=== PATIENT | male | born 2000 | race Caucasian/White ===

== ENCOUNTER 2024-08-26 03:10 | Emergency (ER) | payer BC, SELFPAY ==
[2024-08-26 03:13] VITALS: BP 114/68; PULSE 84; RESP 18; TEMP 37; O2SAT 98; BMI 23.4
--- NOTE | 2024-08-26 03:28 | ED_ITS ---
HPI - Pediatric HENT General Chief complaint: Ear Problems Stated complaint: possible strep Time Seen by Provider: 08/26/24 03:22 Source: patient Mode of arrival: ambulatory Limitations: no limitations History of Present Illness ED Provider: Dr. Gini Yanez HPI Narrative: Patient comes to the emergency room complaining of throat pain and left-sided ear pain. Patient states he woke up with pain approximately 2 hours ago. She denies any trauma. Related Data Previous Rx's ?Medication ?Instructions ?Recorded amoxicillin 500 mg-potassium 1 tab PO TID 10 days #30 tabs 08/26/24 clavulanate 125 mg tablet (Augmentin) ibuprofen 600 mg tablet 600 mg PO Q8H PRN fever or pain 08/26/24 #20 tabs Allergies Allergy/AdvReac Type Severity Reaction Status Date / Time prednisone Allergy Unknown Unknown Unverified 08/26/24 03:16 No Known Allergies Allergy Unverified 08/26/24 03:16 [No Known Allergies*] Pediatric Review of Systems Review of Systems: Constitutional : No Weight loss, No Fever, No Chills, No Night Sweats, No Fatigue, No Malaise ENT/Mouth : No Hearing loss, complaining of left-sided Ear Pain, No Nasal Congestion, No Sinus Pain, No Hoarseness, complaining of sore throat, No Rhinorrhea, No Swallowing Difficulty Eyes: No Eye Pain, No Swelling, No Redness, No Foreign Body, No Discharge, No Vision Changes Cardiovascular : No Chest Pain, No SOB, No Dyspnea on Exertion, No Orthopnea, No Edema, No Palpitations Respiratory : No Cough, No Sputum, No Wheezing, No Smoke Exposure, No Dyspnea Gastrointestinal : No Nausea, No Vomiting, No Diarrhea, No Constipation, No abdominal Pain, No Hematochezia, No Melena Genitourinary : no irregular bleeding, No Dysuria, No Urinary Frequency, No Hematuria, No Urinary Incontinence, No Urgency, No Flank Pain, No Urinary Flow Changes, No Hesitancy Musculoskeletal : No joint pain, No Myalgias, No Joint Swelling Skin : No Skin Lesions, No rash Neuro : No Weakness, No Numbness, No Paresthesias, No Loss of Consciousness, No Dizziness, No Headache Psych : No Anxiety/Panic, No Depression, No SI/HI/AH/VH, No Social Issues, Heme/Lymph: No Bruising, No Bleeding,No Lymphadenopathy Endocrine : No Polyuria, No Polydipsia, No Temperature Intolerance PMFSH Social History Social History Smoked in Last 30 Days: No Use of substances other than those prescribed or required for medical reasons: No Advance Directives: No Advance Directives Information Provided: Yes Pediatric Exam Narrative: Physical exam: Appearance: Alert. Oriented X3. No acute distress. Eyes: Pupils equal, round and reactive to light. ENT: Pharynx erythematous, white exudates bilaterally present, no obvious abscesses. Right ear canal and tympanic membrane within normal limits, the ear canal and tympanic membrane erythematous, no ruptured membranes bilaterally, no mastoid bone tenderness bilaterally Neck: Normal inspection. Neck supple. No lymph nodes noted. No crepitus CVS: Normal heart rate and rhythm. Pulses normal. Normal S1 and S2 Respiratory: No respiratory distress. Breath sounds normal. No Wheezing. No rales Abdomen: Soft and nontender. No rigidity. No distention. Skin: Skin warm and dry. Normal skin color. Normal skin turgor. Extremities: No lower extremity edema. No Lacerations. No Rash Neuro: Oriented X 3. No motor deficit. No sensory deficit. Moving all extremities. No slurred speech. CN 2 through 12 grossly intact Psych: calm, cooperative, normal affect General: Limitations: no limitations Medications Administered Discontinued Medications Generic Name Dose Route Start Last Admin Trade Name Freq PRN Reason Stop Dose Admin Amoxicillin/Clavulanate Potassium 500 mg 08/26/24 03:27 08/26/24 03:32 Amoxicillin/Potassium Clav 500 Mg Tablet PO 08/26/24 03:28 500 mg ONCE ONE Administration Ibuprofen 600 mg 08/26/24 03:29 08/26/24 03:32 Ibuprofen 600 Mg Tablet PO 08/26/24 03:30 600 mg ONCE ONE Administration Medical Decision Making Medical Decision Making [facility] Narrative: Patient has otitis media. Patient given the 1st dose of Augmentin and ibuprofen in the ED. -I discussed with the patient that the antibiotic for the otitis will also cover strep. However, patient requesting to be tested because family members at home have similar symptoms and would like to know if he has strep Strep test was negative. Discussed with the patient that they initial test may be negative by the cultures may be positive. Patient is already taking antibiotics which would cover for strep. Differential Diagnosis Differential Diagnoses: The differential diagnosis associated with the presentation includes (Strep pharyngitis, viral pharyngitis, viral syndrome) Lab Data [facility] Lab Attestation statement: I reviewed the patient's lab results. Labs: Lab Results 08/26/24 Range/Units 03:19 S. pyogenes GrpA AKI Negative (Negative) Discharge Plan Discharge Clinical Impression: Otitis media Patient Disposition: Home, Self-Care Instructions: Ear Infection (ED) Additional Instructions: Please follow-up with your primary care physician tomorrow. If you have any worsening or new symptoms, please return to the emergency room or call 911 Prescriptions: New amoxicillin-pot clavulanate [Augmentin] 500-125 mg tablet 1 tab PO TID 10 Days Qty: 30 0RF ibuprofen 600 mg tablet 600 mg PO Q8H PRN (Reason: fever or pain) Qty: 20 0RF Print Language: Swedish
[2024-08-26] MEDS: Amoxicillin/Potassium Clav 500 MG TABLET PO (03:32)
[2024-08-26] MEDS: Ibuprofen 600 MG TABLET PO (03:32)
[2024-08-26 03:41] LABS: IDNOW Serial# 08D9AD1C; Strep A Nucleic Acid Negative (Negative)
[2024-08-26 04:02] VITALS: BP 141/91; PULSE 85; RESP 16; TEMP 36.9; O2SAT 98
--- NOTE | 2024-08-26 04:03 | PC.NURSE ---
Medicated per Mar, reviewed discharge instructions with pt, pt verbalized understanding no sign of distress upon discharge.
[2024-08-26 04:05] VITALS: BP 141/91; PULSE 85; RESP 16; TEMP 36.9; O2SAT 98
== END 2024-08-26 04:05 | disposition home or self-care (01) ==
PROVIDERS: Emergency Provider Emergency Medicine; PCP Family Medicine
DX: H66.92 Otitis media, unspecified, left ear (principal); J02.9 Acute pharyngitis, unspecified
CPT/HCPCS: 87651; 99283; 99284

== ENCOUNTER 2024-10-22 13:20 | Emergency (ER) | payer BC, SELFPAY ==
--- NOTE | ~2024-10-22 | XR_ITS ---
EXAMINATION: XR CHEST CLINICAL INFORMATION: CP COMPARISON: None available. TECHNIQUE: 2 views of the chest were obtained. FINDINGS: No significant abnormality is noted involving the heart, lungs, mediastinum, bony thorax or soft tissues. XR/XR chest 2V IMPRESSION: Unremarkable chest examination. Electronically signed by: Alek Hayes MD 10/22/2024 01:[address] [facility]
[2024-10-22 13:22] VITALS: BP 155/98; PULSE 78; RESP 20; TEMP 36.3; O2SAT 100; BMI 22.5
--- NOTE | 2024-10-22 13:22 | ED_ITS ---
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 Pain over left upper lateral chest wall described as a tight, burning pressure. Discomfort radiates to the left axilla at times. Denies diaphoresis, shortness of breath, nausea vomiting. Patient denies recent cough or cold symptoms no fevers. Patient denies mechanism of injury to suggest chest wall strain. Patient states he is currently being followed by gastroenterology for ongoing epigastric discomfort; he is pending a scope. Related Data Previous Rx's ?Medication ?Instructions ?Recorded amoxicillin 500 mg-potassium 1 tab PO TID 10 days #30 tabs 08/26/24 clavulanate 125 mg tablet (Augmentin) ibuprofen 600 mg tablet 600 mg PO Q8H PRN fever or pain 08/26/24 #20 tabs Allergies Allergy/AdvReac Type Severity Reaction Status Date / Time prednisone Allergy Unknown Unknown Verified 10/22/24 13:24 Review of Systems 2 Review of Systems: Yes all other systems are reviewed and are negative Constitutional: Constitutional: Denies fatigue and Denies fever(s) Cardiovascular: Cardiovascular: Reports chest pain and Denies dyspnea Respiratory: Respiratory: Denies chest congestion, Denies cough, Denies dyspnea and Denies wheezing Gastrointestinal: Gastrointestinal: Reports abdominal pain, Denies dyspepsia, Denies nausea and Denies vomiting Endocrine: Endocrine: Denies fatigue Allergic/Immunologic: Allergic/Immunologic: Denies wheezing [facility] Past Medical History Attestation statement: The following information was validated with the patient. Social History Social History Advance Directives: No Advance Directives Information Provided: Yes Do you have a plan to hurt others: No Plan Physical Exam 2 Vital Signs: Vital Signs: Last Vital Signs Temp 97.9 F 10/22/24 17:57 Pulse 93 10/22/24 17:57 Resp 20 10/22/24 17:57 BP 143/91 H 10/22/24 17:57 Pulse Ox 98 10/22/24 17:57 O2 Del Method Room Air 10/22/24 17:57 BMI result Body Mass Index 22.5 Const: Other: Alert well-appearing Orientation/consciousness: patient oriented x3 Resp: Effort & Inspection: normal respiratory effort Cardio: Other: Normal peripheral perfusion Skin: Other: Warm dry no rash Neuro: General: patient oriented x3, gait normal, no focal motor deficits and CN's II-XI intact bilaterally Psych: Other: Calm cooperative Course Course Course Narrative: This is an RME: Additional HPI, ROS, PE not included below will be deferred to primary provider. RME assessment and note performed by: Debi Lowe PA-C This is a 27-pneb-gbf-male, with a hx of dialated vena cava, who presents to the ER with complaints of left sided burning chest pain x 1 week. Reports pain has woken him up in the middle of the night. 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 He is awaiting a 2nd echocardiogram through [facility]. His father has a history of an aortic aneurysm as well as atrial fibrillation. Was here 1 month ago for ear infection. Plan: Labs, EKG, chest x-ray, further ER evaluation needed. 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 Pain over left upper lateral chest wall described as a tight, burning pressure. Discomfort radiates to the left axilla at times. Denies diaphoresis, shortness of breath, nausea vomiting. Patient denies recent cough or cold symptoms no fevers. Patient denies mechanism of injury to suggest chest wall strain. Patient states he is currently being followed by gastroenterology for ongoing epigastric discomfort; he is pending a scope. Problem: Congenital heart issues, anxiety History: Per patient I have considered the following differential diagnoses: ACS, new heart failure, costochondritis, chest wall strain, PE, poorly controlled GERD Plan: ACS was considered, screening labs including a cardiac enzymes EKG and chest x-ray were obtained. When patient arrived he was tachycardic. I am considering dimer. To note, he has no objective signs symptoms for DVT on exam. This is not new failure, he is not overtly hypertensive, he is not hypoxic, he has no shortness of breath. This is not costochondritis, he has not had preceding viral syndrome. This is not chest wall strain, he has no mechanism of injury. I do feel his anxiety is playing a role, he freely admits he often perseverates over chest related discomfort secondary to his congenital heart issues. In regard to his ongoing epigastric discomfort, he likely has poorly controlled GERD, however the distribution of his chest discomfort does not coincide with indigestion. I have independently reviewed the following tests: Labs: Slight leukocytosis, not anemic, no electrolyte abnormality, troponin negative, dimer negative EKG: Sinus tachycardia rate of 125, no ischemic changes no ectopy Chest x-ray:INDINGS: No significant abnormality is noted involving the heart, lungs, mediastinum, bony thorax or soft tissues. XR/XR chest 2V IMPRESSION: Unremarkable chest examination. Electronically signed by: Alek Hayes MD 10/22/2024 01:59 PM [facility] Lab Data 10/22/24 14:01 10/22/24 14:01 Labs: Lab Results 10/22/24 10/22/24 Range/Units 14:01 19:09 WBC 11.8 H (4.8-10.8) X10*3/uL RBC 5.08 (4.60-5.80) X10*6/uL Hgb 16.1 (14.0-18.0) g/dl Hct 45.9 (42.0-52.0) % MCV 90.4 (80.0-98.0) fL MCH 31.7 (27.0-33.0) pg MCHC 35.1 (31.0-36.0) g/dl RDW 12.9 (11.0-16.0) % Plt Count 417 H (160-400) X10*3/uL MPV 8.7 L (9.4-12.4) fL Immature Gran % (Auto) 0.3 (0.0-0.4) % Neut % (Auto) 68.0 (45-73) % Lymph % (Auto) 21.4 (20-40) % [place] % (Auto) 8.7 (2-11) % Eos % (Auto) 0.9 (0-4) % Baso % (Auto) 0.7 (0-2) % Lymph # (Auto) 2.5 (1.2-4.9) X10*3/uL [place] # (Auto) 1.0 (0.1-1.2) X10*3/uL Eos # (Auto) 0.1 (0.0-0.4) X10*3/uL Baso # (Auto) 0.1 (0.0-0.2) X10*3/uL Abs Immat Gran (auto) 0.04 H (0.00-0.03) X10*3/uL Absolute Neuts (auto) 8.0 (2.0-8.3) x10*3/uL Absolute Nucleated RBC 0.000 (0.0-0.012) X10*3/uL Nucleated RBC % (auto) 0.0 (0.0-0.2) /100WBC PT 11.3 (10.9-12.4) SEC INR 1.0 (0.9-1.1) D-Dimer High Sensitivty < 150 < 150 NG/ML Sodium 139 (135-145) mmol/L Potassium 3.5 (3.3-5.1) mmol/L Chloride 101 (96-108) mmol/L Carbon Dioxide 29 (22-29) mmol/L Anion Gap 13 (12-20) BUN 10 (9-16) mg/dL Creatinine 0.85 (0.5-1.4) mg/dL Estim Creat Clear Calc 156.3 Estimated GFR > 60 Random Glucose 124 H (60-115) mg/dL Calcium 9.7 (8.4-10.2) mg/dL Magnesium 2.0 (1.6-2.6) mg/dL Total Bilirubin 0.6 (0.0-1.0) mg/dL Direct Bilirubin 0.2 (0.0-0.5) mg/dL AST 24 (5-37) U/L ALT 28 (0-40) U/L Alkaline Phosphatase 44 (39-117) U/L Troponin I High Sens < 2.7 (<3.5-35.0) ng/L B-Natriuretic Peptide < 10 (<100) pg/mL Total Protein 8.2 H (6.5-8.0) g/dL Albumin 4.9 (3.5-5.0) g/dL Influenza Type A (PCR) NEGATIVE (Negative) Influenza Type B (PCR) NEGATIVE (Negative) RSV RNA Qual (PCR) NEGATIVE (Negative) SARS-CoV-2 RNA (RT-PCR) NEGATIVE (Negative) Discharge Plan Discharge Clinical Impression: Atypical chest pain Patient Disposition: Home, Self-Care Instructions: Noncardiac Chest Pain (ED) Additional Instructions: All of your screening labs including a cardiac enzymes were normal. The D- dimer, the lab parameter that we spoke about in regard to clot metabolism, was negative as well. The chest x-ray is clear and there were no concerning changes on your EKG. Your discomfort today is not cardiac in nature. Continue to follow up with your healthcare providers. Prescriptions: No Action amoxicillin-pot clavulanate [Augmentin] 500-125 mg tablet 1 tab PO TID 10 Days Qty: 30 0RF ibuprofen 600 mg tablet 600 mg PO Q8H PRN (Reason: fever or pain) Qty: 20 0RF Print Language: Gibraltarian
--- NOTE | 2024-10-22 13:25 | ECG_ITS ---
Test Reason : chest pain Blood Pressure : */* mmHG Vent. Rate : 125 BPM Atrial Rate : 125 BPM P-R Int : 130 ms QRS Dur : 82 ms QT Int : 340 ms P-R-T Axes : 84 84 76 degrees QTcB Int : 490 ms Sinus tachycardia Right atrial enlargement Borderline ECG No previous ECGs available Referred By: Debi Lowe Electronically Signed By: CHRISS BRITTON
[2024-10-22 14:05] LABS: MANUAL DIFF FLAG NO
[2024-10-22 14:07] LABS: Basophils Absolute Auto 0.1 X10*3/uL (0.0-0.2); Basophils Percent Auto 0.7 % (0-2); Eosinophils Absolute Auto 0.1 X10*3/uL (0.0-0.4); Eosinophils Percent Auto 0.9 % (0-4); Hematocrit 45.9 % (42.0-52.0); Hemoglobin 16.1 g/dl (14.0-18.0); Imm Gran Abs Auto 0.04 X10*3/uL (0.00-0.03); Imm Gran Pct Auto 0.3 % (0.0-0.4); Lymphocytes Absolute Auto 2.5 X10*3/uL (1.2-4.9); Lymphocytes Percent Auto 21.4 % (20-40); Mean Corpuscular HGB Conc 35.1 g/dl (31.0-36.0); Mean Corpuscular Hemoglobin 31.7 pg (27.0-33.0); Mean Corpuscular Volume 90.4 fL (80.0-98.0); Mean Platelet Volume 8.7 fL (9.4-12.4); Monocytes Percent Auto 8.7 % (2-11); Platelet Count 417 X10*3/uL (160-400); Red Blood Count 5.08 X10*6/uL (4.60-5.80); Red Cell Distribution Width 12.9 % (11.0-16.0); White Blood Count 11.8 X10*3/uL (4.8-10.8)
[2024-10-22 14:13] LABS: Prothrombin Time 11.3 SEC (10.9-12.4)
[2024-10-22 14:24] LABS: Alanine Aminotransferase 28 U/L (0-40); Albumin Level 4.9 g/dL (3.5-5.0); Alkaline Phosphatase 44 U/L (39-117); Anion Gap 13 (12-20); Aspartate Amino Transferase 24 U/L (5-37); Bilirubin Direct 0.2 mg/dL (0.0-0.5); Bilirubin Total 0.6 mg/dL (0.0-1.0); Blood Urea Nitrogen 10 mg/dL (9-16); Calcium 9.7 mg/dL (8.4-10.2); Carbon Dioxide 29 mmol/L (22-29); Chloride 101 mmol/L (96-108); Creatinine Clr Calc Pharmacy 156.3; Estimated Glomerular Filt Rate > 60; Glucose Random 124 mg/dL (60-115); Potassium 3.5 mmol/L (3.3-5.1); Sodium 139 mmol/L (135-145); Total Protein 8.2 g/dL (6.5-8.0)
[2024-10-22 14:28] LABS: B Type Natriuretic Peptide < 10 pg/mL (<100)
[2024-10-22 14:30] LABS: Troponin-I High Sensitivity < 2.7 ng/L (<3.5-35.0)
--- OUTSIDE RECORDS SUMMARY | 2024-10-22 14:35 | XMS_ITS | Encounter Summary ---
Author Organization [facility] Address [address] [place] [id number] Phone Care Team Providers Care Ceramic Artist Name Role Phone Jose M Hatch MD Primary Care Provider [phone] Encounter Details Date Type Department Care Team (Late st Contact Info) Description 11/21/2011 Documentation EM Family Medicine [address] [place] [address] Family Medicine, Physician [address] [place], [place] [id number] Social History Tobacco Use Types Packs/Day Years Used Date Smoking Tobacco: Never Assessed Sex and Gender Information Value Date Recorded Sex Assigned at Not on file Legal Sex Male 5:22 PM EDT Gender Identity Not on file Sexual Orientation Not on file documented as of this encounter Plan of Treatment Not on file documented as of this encounter Visit Diagnoses Not on filedocumented in this encounter Care Teams Ceramic Artist Relationship Specialty Start Date End Date Jose M Hatch MD [address] [place] [address] [place] [id number] PCP - General 05/05/17 11/10/22 documented as of this encounter
--- OUTSIDE RECORDS SUMMARY | 2024-10-22 14:35 | XMS_ITS | Data Portability ---
Author Organization ALEJANDRO Salvador [facility], [address] Address [address] [place] [address] Assessment No assessment recorded. Plan of Treatment Reminders Order Date Submit Date Provider Last Modified By Organization Details Last Modified Time Details Appointments None recorded. Lab rapid strep group A, throat 2023 024 [email or web address] _[facility], [address] [place] [address], [phone], 11:07:40 streptococc us group A, culture, throat 2023 024 [place] [facility] ([facility], [address] [place] [address], [place], [address], 08:07:11 Referral None recorded. Procedures None recorded. Surgeries None recorded. Imaging None recorded. Medication Orders None recorded. Patient TargetsNo targets recorded. Patient Instructions Encounter Date Encounter Id Patient Instructions Last Modified By Organization Details Last Modified Time 09/14/2024 [id number] sore throat: car e instructions [email or web address] Not available 09/14/2024 11:07:40 Reason for Referral None Reported. Results Created Date Observation Date Name Description Value Unit Range Abnormal Flag Note LastModifiedBy Organization Detail LastModifiedTime 09/14/2009/17/2024 BETA STREP GP A CULTU RE beta strep gp A culture NEGATI VE Refer ence Range : Negat che Not Available [facility] ([facility]) [address] [facility], [place], [address], 09/17/2024 08:07:10 09/14/2009/14/2024 rapid strep group A, throa t Unknown Analyte negati ve Not Available [address] [place] [address], [phone], 09/14/2024 10:56:58 Result Notes None recorded. Problems No Known Problems Medical Equipment None Reported. Allergies Allergen ID Allergen Name Allergen Category Reaction Reaction Severity Criticality Documentation Date Start Date Code Code System Note Provider Name and Address Organization Details Recorded Time [id number] prednison e medicatio n Not available Not available Not available 09/14/2024 8640 RxNorm Fany Perri null, PA - [facility] 10:56:10 Medications Name Sig Start Date Stop Date Status Note LastModified by Organization Details LastModified Time ibuprofen 600 mg tablet active Not Available Not Available No t Available amoxicillin 500 mg-potassium clavulanate 125 mg tablet 2023 completed Not Available Not Available Not Available Vitals Date Recorded Body height Provider Name an d Address Organization Details Last Updated DateTime 09/14/2024 193.04 cm Fany Perri PA - [facility] 09/14/2024 10:57:05 Date Recorded Body mass index (BMI) Body weight Provider Name and Address Organization Details Last Updated DateTime 09/14/2024 23.7 kg/m2 52710.51 g Fany Perri PA - [facility] 09/14/2024 10:57:08 Date Recorded Oxygen saturation Oxygen saturation in Arterial blood by Pulse oximetry Provider Name and Address Organization Details Last Updated DateTime 09/14/2024 99 % 99 % Fany Perri PA - [facility] 09/14/2024 10:57:39 Date Recorded Pain severity - 0-10 verbal numeric rating [Score] - Reported Provider Name and Address Organization Details Last Updated DateTime 09/14/2024 0 Fany Perri PA - [facility] 09/14/2024 10:57:41 Date Recorded Heart rate Provider Name an d Address Organization Details Last Updated DateTime 09/14/2024 89 /min Fany Perri PA - [facility] 09/14/2024 10:57:43 Date Recorded Respiratory rate Provider Name a nd Address Organization Details Last Updated DateTime 09/14/2024 18 /min Fany Rayo PA - [facility] 09/14/2024 10:57:45 Date Recorded Body temperature Provider Name a nd Address Organization Details Last Updated DateTime 09/14/2024 97.7 [degF] Fany Rayo PA - [facility] 09/14/2024 10:57:49 Date Recorded Systolic blood pressure Diastolic blood pressure Provider Name and Address Organization Details Last Updated DateTime 09/14/2024 138 mm[Hg] 84 mm[Hg] Fany Rayo PA - [facility] 09/14/2024 10:57:54 Social History Question Answer Notes LastModified by Organizat ion Details LastModified Time Tobacco Smoking Status Never Smoker Fany Rayo amarilis PA - [facility] 09/14/2024 10:56:45 What Is Your Level Of Alcohol Consumption? Occasional Information not available 09/14/2024 Have You Had A Flu Shot This Season? No Information not available 09/14/2024 If No, Would You Like A Flu Shot Today? No Information not available 09/14/2024 What Was The Date Of Your Most Recent Tobacco Screening? 09/14/2024 Information not available 09/14/2024 Do You Use Any Illicit Or Recreational Drugs? Yes Information not available 09/14/2024 Have You Recently Traveled Abroad? No Information not available 09/14/2024 Do You Or Have You Ever Used Any Other Forms Of Tobacco Or Nicotine? No Information not available 09/14/2024 Sex: Unknown Functional Status None recorded. Mental Status None recorded. Family History Relationship Description Onset Age of this Age Resolved Age Notes LastModified by Organization Details LastModified Time Father No current problems or disability Not available 09/14 10:56:32 Mother No current problems or disability Not available 09/14 10:56:32 Medical History No medical history recorded. Past Encounters Encounter ID Performer Location Encounter Start Date Encounter Closed Date Diagnosis/Indication Diagnosis SNOMED-CT Code Diagnosis ICD10 Code Diagnosis Note [id number] [address] [place] [address] 08/04/2018 09:46:46 08/04/2018 10:56:29 [id number] [address] [facility] [place] [address] 11/01/2019 19:27:02 11/01/2019 19:51:44 [id number] [address] [facility] [place] [address] 05/18/2019 16:31:26 05/18/2019 16:48:11 [id number] [facility]DR[facility] [address] [address] [place] [address] 09/14/2024 10:51:42 09/14/2024 11:08:29 Acute pharyngitis 498000041 J02.9 Based on your Presentati on, Exam, and Lab Testing you are being diagnosed with Pharyngiti s. Your Rapid Strep Test was Negative. Most likely your sore throat is being caused by a virus, post nasal drip, or silent acid reflux. I am going to send a Throat Culture to the lab for you to make sure you don't have a different form of strep in your throat. This will take about 72 hours for that result to return. We will contact you if it positive - if for some reason you don't get a copy of your results or hear from us - please contact our office. The following are my other recommenda tions to help with symptoms and is important for this diagnosis: 1. Take Ibuprofen or Tylenol if you do not have any allergies to these medication s. If you take a blood thinner you should not take NSAIDS like Ibuprofen. These medication will help with the inflammati on in your respirator y tract which should help the cough. (I would alternate between Tylenol 650 mg and your Ibuprofen 600 mg every 4 hours)2. Steroid nasal sprays like Flonase or Nasonex (or generic) can help with postnasal drainage2. Do not take any Cold Medication s that have a Decongesta nt in it - this will dry out your throat and make the sore throat worse.3. Drinking Hot Tea with honey can help coat and soothe your throat. I would be seen again if you develop any of the following symptoms.1 . Fever > 101.02. Stiff neck - where you can't turn your neck3. Trouble swallowing your saliva - drooling4. Swelling of a lymph node in your throat that is painful to touch5. Difficulty breathing6 . Severe Headache Thank you for using [facility] today, please feel free to contact our office if you have any questions or concerns. Health Concerns Section Related Observation LastModified by Organization Detai ls LastModified Time None Recorded Concern Status LastModified by Organization Details LastModified Time None Recorded Advance Directives Directive None Recorded Payers Encounter Date Sequence Insurance Name Policy Number Policy Krause Covered Member ID Krause Member ID Guarantor Name 08/04/2018 1 [place] [id number] Man Abdullahi [id number] Tomas Ibarraacki 05/18/2019 1 [place] [id number] Man Barbacki [id number] Tomas Barbacki 11/01/2019 1 [place] [id number] Man Barbacki [id number] Tomas Barbacki 09/14/2024 1 [place] [id number] Man Barbacki [id number] Tomas Renei Notes Date Note Type Note Provider Name and Address Organization Details Recorded Time 09/14/2024 text/html 24 y/o male with sore throat for 2 days. Had sore throat 3 weeks ago, treated for strep based on exam, neg rapid, no cx.Symptoms improved a little, then restarted. He was also treated for an ear infection at the time [place], [address], PA - [facility] 09/14/2024 11:10:50
--- OUTSIDE RECORDS SUMMARY | 2024-10-22 14:35 | XMS_ITS | Continuity of Care Document ---
Author Organization [facility] Address [address] [place] [address]- Care Team Providers Care Milking Machine Mechanic Name Role Phone Ramon Negrete DO Primary Care Physician Encounter [facility] Date(s): 09/04/24 - 10/04/24 [facility] [place] Adult [address] [place] [address]- Encounter Type: Triage Allergies, Adverse Reactions, Alerts Substance Criticality Severity Reaction Reaction Severity Status predniSONE mood swings Active Immunizations Given and Recorded Vaccine Date Status Refusal Reason tetanus/diphtheria/pertussis, acel(Tdap) 01/17/23 Recorded tetanus/diphtheria/pertussis, acel(Tdap) 08/13/10 Recorded SARS-CoV-2 (COVID-19) mRNA-1273 vaccine 08/16/21 R ecorded SARS-CoV-2 (COVID-19) mRNA BNT-162b2 vac 12/01/20 Recorded SARS-CoV-2 (COVID-19) mRNA BNT-162b2 vac 11/09/20 Recorded influenza virus vaccine, inactivated 07/02/20 Give n influenza virus vaccine, inactivated 07/20/15 Kayode rded influenza virus vaccine, inactivated 07/18/14 Kayode rded Hepatitis A Vaccine (oldterm) 07/20/15 Recorded Hepatitis A Vaccine (oldterm) 12/23/14 Recorded Meningococcal Conjugate Vaccine 08/13/10 Recorded Varicella Virus Vaccine 07/02/08 Recorded Varicella Virus Vaccine 06/23/99 Recorded Measles/Mumps/Rubella Virus Vaccine 06/26/02 Recor ded Measles/Mumps/Rubella Virus Vaccine 06/23/99 Recor ded Poliovirus Vaccine, Inactivated 06/26/02 Recorded Poliovirus Vaccine, Inactivated 06/23/99 Recorded Poliovirus Vaccine, Inactivated 98 Recorded Poliovirus Vaccine, Inactivated 98 Recorded Haemophilus B Conj Vaccine (oldterm) 09/15/99 Kayode rded Haemophilus B Conj Vaccine (oldterm) 98 Kayode rded Haemophilus B Conj Vaccine (oldterm) 98 Kayode rded Haemophilus B Conj Vaccine (oldterm) 98 Kayode rded Hepatitis B Vaccine (old term) 98 Recorded Hepatitis B Vaccine (old term) 98 Recorded Hepatitis B Vaccine (old term) 98 Recorded Medications albuterol CFC free 90 mcg/inh inhalation aerosol 2, puffs, Inhalation, Every 6 hours, # 1 each, Refills 0, Tot. Refills 0, Maintenance, 01/10/19 3:11:08 PM EDT, Route to Pharmacy Electronically, [id number], [facility] [id number] Start Date: 01/10/19 Status: Ordered Quantity: 1.0 Unit: each Repeat number: 1 hyoscyamine 0.125 mg oral tablet, disintegrating 0.5 tablet = 0.0625 mg, By Mouth, 4 times a day, PRN as needed for spasm, # 60 tablet, 3 Refills, Maintenance, 08/26/24 4:46:00 PM EST, DIS Tablet, [id number], Partial fill upon patient request if the prescription is for a schedule II opioid drug., 196, cm, 08/26/24 16:18:00 EST, Height Start Date: 08/26/24 Status: Ordered Quantity: 60.0 Unit: tablet Repeat number: 4 sertraline 100 mg oral tablet 0.5 tablet = 50 mg, By Mouth, Daily, 0 Refills, Maintenance, 07/31/19 3:21:16 PM EST Start Date: 07/31/19 Status: Ordered Repeat number: 1 Problem List Condition Confirmation Course Effective Dates Status Health St atus Informant Acute left otitis media Confirmed Active Change in stool caliber Confirmed Active 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 Depression Confirmed Active Enlarged RV (right ventricle) Confirmed Active Family history of congenital heart defect Confirmed Active NU (generalized anxiety disorder) Confirmed Active Left sided abdominal pain Confirmed Active OCD (obsessive compulsive disorder) Confirmed Active Physical exam Confirmed Active Seasonal affective disorder Confirmed Active Seasonal asthma Confirmed Active Social History Social History Type Response Smoking Status Never (less than 100 in lifetime) entered on: 10/05/18 Sex Sex Representation Male (finding) Patient Care team information Care Team Personnel Name: Ramon Negrete DO Position: [facility] Physician - Primary Care Member Role: PCP Address: [address] [place] [address] [place] [address]- Telecom: Name: Edward Brennan MD Position: [facility] Physician - Behavioral Health Member Role: Lifetime Consulting Physician Address: [address] [place] [address]- Telecom: Care Team Related Persons Name: MARIIA GALLEGOS Name: ALMA GALLEGOS Insurance Providers Guarantor name: KE Health Plan Information #: 1 Payer: [employer] ELECT Member Number: NA Policy Number: NA Group Number: NA
--- OUTSIDE RECORDS SUMMARY | 2024-10-22 14:35 | XMS_ITS | Continuity of Care Document ---
Author Organization [facility] [address] Address [address] [place] [address]- Care Team Providers Care Payment Rep Name Role Phone Ramon Negrete DO Primary Care Physician Encounter [facility] Date(s): 09/04/24 - 10/04/24 [facility] Adult [address] [place] [address]- Encounter Type: Triage Allergies, Adverse Reactions, Alerts [...] 3:11:08 PM EDT, Route to Pharmacy Electronically, [id number], [facility] [id number] Start Date: 01/10/19 Status: Ordered Quantity: 1.0 Unit: each Repeat number: 1 hyoscyamine 0.125 mg oral tablet, disintegrating 0.5 tablet = 0.0625 mg, By Mouth, 4 times a day, PRN as needed for spasm, # 60 tablet, 3 Refills, Maintenance, 08/26/24 4:46:00 PM EST, DIS Tablet, [id number], Partial fill upon patient request if the [...] Team Personnel Name: Ramon Negrete DO Position: [facility] Physician - Primary Care Member Role: PCP Address: [address] [place] [address] [place] [address]- Telecom: Name: Edward Brennan MD Position: [facility] Physician - Behavioral Health Member Role: Lifetime Consulting Physician Address: [address] [place] [address]- Telecom: Care Team Related Persons Name: MARIIA GALLEGOS Name: ALMA GALLEGOS Insurance Providers Guarantor name: KE Health Plan Information #: 1 Payer: [employer] E[employer] Member Number: NA Policy Number: NA Group Number: NA
--- OUTSIDE RECORDS SUMMARY | 2024-10-22 14:35 | XMS_ITS | Clinical Summary ---
Author Organization [facility] Address [address] [place] [address] Phone Care Team Providers Care Mine Shifter Name Role Phone Unavailable Primary Care Provider Unavailabl e Allergies No known active allergies Medications No known medications Immunizations Name Administration Dates Next Due DTaP 5 06/26/2002, 0,1998, 999,1998 H1N1 07/29/2009 Hep A, ped/adol 07/20/2015,12/23/2014 Hep B, ped/adol 1998,1998,1998 Hib (PRP-T) 09/15/1999, 9,1998, 998 IPV 06/26/2002 Influenza Split 08/24/2011,06/30/2010 Influenza, injectable, quadrivalent 07/20/2015,1 Influenza, injectable, trivalent 06/05/2009,06/25 MMR 06/26/2002,06/23/1999 Meningococcal Conj (Menactra) MCV4P 08/13/2010 OPV 06/23/1999,1998,1998 Tdap 08/13/2010 Varicella 07/02/2008,06/23/1999 Family History Relation Name Status Comments Brother Alive Brother: Alive and well Father Alive Father: Alive a nd well Mother Alive Mother: Alive a nd well Other 1 Alive grandmother: Di abetes mellitus Other 2 No family histo ry of Obesity, No family history of Sudden /ND under age 55, No family history of Elevated cholesterol, No family history of Strabismus/amblyopia, No family history of ADD/ADHD, No family history of Migraines, No family history of Autism, Family history of Hypertension, No family history of Asthma, No family history of Developmental dislocation of hip, No family history of Deafness, No family history of Seizure disorder Social History Tobacco Use Types Packs/Day Years Used Date Smoking Tobacco: Never Comments:Never smoker Sex and Gender Information Value Date Recorded Sex Assigned at Not on file Legal Sex Male 5:22 PM EDT Gender Identity Not on file Sexual Orientation Not on file Last Filed Vital Signs Vital Sign Reading Time Taken Comments Blood Pressure 126/74 08/01/2017 11:11 AM EST Pulse 61 08/01/2017 11:11 AM EST Temperature 37 ??C (98.6 ??F) 08/01/2017 11:11 AM EST Respiratory Rate - - Oxygen Saturation 98% 04/01/2014 12:00 AM EDT Inhaled Oxygen Concentration - - Weight 86.9 kg (191 lb 9.6 oz) 08/01/2017 11:11 AM EST Height 194.3 cm (6' 4.5 ) 08/01/2017 11:11 AM ES T Body Mass Index 23.02 08/01/2017 11:11 AM EST Plan of Treatment Health Maintenance Due Date Last Done Comments HPV Vaccines (1 - Male 3-dose series) 2013 DTaP,Tdap,and Td Vaccines (7 - Td or Tdap) 08/13/2020 08/13/2010, 06/26/2002, 12/15/1999, Additional history exists Influenza Vaccines (#1) 2024 07/20/20 15, 07/18/2014, 08/24/2011, Additional history exists COVID-19 Vaccine ( season) 2024 Hepatitis B Vaccines Completed 1998, 1998, 1998 HIB Vaccines Completed 09/15/1999, 11/25, 1998, Additional history exists IPV Vaccines Completed 06/26/2002, 05/27, 1998, Additional history exists MMR Vaccines Completed 06/26/2002, 06/23/1999 Varicella Vaccines Completed 07/02/2008, 06/23/1999 Meningococcal Vaccine Aged Out 08/13/2010 No ruy abhay eligible based on patient's age to complete this topic Hepatitis A Vaccines Completed 07/20/2015, 12/24/19 15 Men B Vaccine Aged Out No longer elig ible based on patient's age to complete this topic Pneumococcal Vaccine Aged Out No long er eligible based on patient's age to complete this topic Insurance [facility] PPO
--- OUTSIDE RECORDS SUMMARY | 2024-10-22 14:35 | XMS_ITS | Encounter Summary ---
Author Organization [facility] Address [address] [place] [address] Phone Care Team Providers Care Lead Trainer Name Role Phone Jose M Hatch MD Primary Care Provider [phone] Encounter Details Date Type Department Care Team (Late st Contact Info) Description 08/17/2010 Documentation [facility] [address] [place] [address] Family Medicine, Physician [address] [place], [place] [id number] Social History Tobacco Use Types Packs/Day Years [...] on filedocumented in this encounter Care Teams Lead Trainer Relationship Specialty Start Date End Date Jose M Hatch MD [address] [place] [address] [place] [address] PCP - General 05/05/17 11/10/22 documented as of this encounter
--- OUTSIDE RECORDS SUMMARY | 2024-10-22 14:35 | XMS_ITS | Encounter Summary ---
Author Organization [facility] Address [address] [place] [address] Phone Care Team Providers Care Stencil Maker Name Role Phone Jose M Hatch MD Primary Care Provider [phone] Encounter Details Date Type Department Care Team (Late st Contact Info) Description 05/11/2017 Conversion Encounter [facility] [address] [place] [address] Social History Tobacco Use Types Packs/Day Years [...] on filedocumented in this encounter Care Teams Stencil Maker Relationship Specialty Start Date End Date Jose M Hatch MD [address] [place] [address] PCP - General 05/05/17 11/10/22 documented as of this encounter
--- OUTSIDE RECORDS SUMMARY | 2024-10-22 14:35 | XMS_ITS | Continuity of Care Document ---
Author Organization [facility] Wero Geovani lt Address [address] [place] [address]- Care Team Providers Care Hoe Worker Name Role Phone Ramon Negrete DO Primary Care Physician Encounter [facility] Date(s): 09/04/24 - 10/04/24 [facility] [place] Adult [address] [place] [address]- Encounter Type: Triage Allergies, Adverse Reactions, Alerts [...] 3:11:08 PM EDT, Route to Pharmacy Electronically, [id number], [facility] [address] Start Date: 01/10/19 Status: Ordered Quantity: 1.0 Unit: each Repeat number: 1 hyoscyamine 0.125 mg oral tablet, disintegrating 0.5 tablet = 0.0625 mg, By Mouth, 4 times a day, PRN as needed for spasm, # 60 tablet, 3 Refills, Maintenance, 08/26/24 4:46:00 PM EST, DIS Tablet, [facility][id number], Partial fill upon patient request if the [...] Team Personnel Name: Ramon Negrete DO Position: [facility] Physician - Primary Care Member Role: PCP Address: [address] [place] [address] [place] [address]- Telecom: Name: Edward Brennan MD Position: [facility] Physician - Behavioral Health Member Role: Lifetime Consulting Physician Address: [address] [place] [address]- Telecom: Care Team Related Persons Name: MARIIA GALLEGOS Name: ALMA GALLEGOS Insurance Providers Guarantor name: KE Health Plan Information #: 1 Payer: [employer] E[employer] Member Number: NA Policy Number: NA Group Number: NA
--- OUTSIDE RECORDS SUMMARY | 2024-10-22 14:35 | XMS_ITS | Encounter Summary ---
Author Organization [facility] Address [address] [place] [address] Phone Care Team Providers Care Plant Tour Guide Name Role Phone Jose M Hatch MD Primary Care Provider [phone] Encounter Details Date Type Department Care Team (Late st Contact Info) Description 08/17/2010 Documentation EM Family Medicine [address] [place] [address] Family Medicine, Physician [address] [place], [place] [id number] Social History Tobacco Use Types Packs/Day Years [...] on filedocumented in this encounter Care Teams Plant Tour Guide Relationship Specialty Start Date End Date Jose M Hatch MD [address] [place] [address] [place] [address] PCP - General 05/05/17 11/10/22 documented as of this encounter
--- OUTSIDE RECORDS SUMMARY | 2024-10-22 14:35 | XMS_ITS | Encounter Summary ---
Author Organization [facility] Address [address] [place] [address] Phone Care Team Providers Care Flat Hammerer Name Role Phone Jose M Hacth MD Primary Care Provider [phone] Encounter Details Date Type Department Care Team (Late st Contact Info) Description 05/06/2015 Documentation [facility] [place] [address] [place] [address] Family Medicine, Physician [address] [place], [place] [address] Social History Tobacco Use Types Packs/Day Years [...] on filedocumented in this encounter Care Teams Flat Hammerer Relationship Specialty Start Date End Date Jose M Hatch MD [address] [place] [address] [place] [address] PCP - General 05/05/17 11/10/22 documented as of this encounter
[2024-10-22 15:13] LABS: Influenza A PCR NEGATIVE (Negative); Influenza B PCR NEGATIVE (Negative); Resp Syncy Virus RNA Qual PCR NEGATIVE (Negative); SARS COV2 PCR INHOUSE NEGATIVE (Negative)
[2024-10-22 17:57] VITALS: BP 143/91; PULSE 93; RESP 20; TEMP 36.6; O2SAT 98
[2024-10-22 19:45] LABS: D Dimer High Sensitivity < 150 NG/ML
[2024-10-22 19:45] LABS: D Dimer High Sensitivity < 150 NG/ML
[2024-10-22 21:06] VITALS: BP 131/66; PULSE 77; RESP 18; TEMP 36.8; O2SAT 98
[2024-10-22 21:12] VITALS: BP 131/66; PULSE 77; RESP 18; TEMP 36.8; O2SAT 98
== END 2024-10-22 21:14 | disposition home or self-care (01) ==
PROVIDERS: Physician Assistant Medical; Emergency Provider Emergency Medicine; PCP Family Medicine
DX: R07.89 Other chest pain (principal); R00.0 Tachycardia, unspecified; R10.13 Epigastric pain; F41.9 Anxiety disorder, unspecified; Z03.818 Encounter for observation for suspected exposure to other biological agents ruled out
CPT/HCPCS: 0241U; 36415; 71046; 80048; 80076; 83735; 83880; 84484; 85025; 85379; 85610; 93005; 99283; 99284

== ENCOUNTER → 2024-10-22 13:25 | Outpatient (BNV) | payer BC, SELFPAY | PROVIDERS: Emergency Provider Emergency Medicine; PCP Family Medicine; Visit Provider Internal Medicine | DX: I51.7 Cardiomegaly (principal); R00.0 Tachycardia, unspecified | CPT/HCPCS: 93010 ==

== ENCOUNTER → 2024-10-22 13:26 | Outpatient (BNV) | payer BC, SELFPAY | PROVIDERS: PCP Family Medicine; Visit Provider Radiology Diagnostic Radiology | DX: R07.9 Chest pain, unspecified (principal) | CPT/HCPCS: 71046 ==

== ENCOUNTER 2024-12-25 12:46 | Outpatient (REF) | payer BC, SELFPAY ==
[2024-12-25 14:10] LABS: Hematocrit 43.7 % (42.0-52.0); Hemoglobin 15.1 g/dl (14.0-18.0); Mean Corpuscular HGB Conc 34.6 g/dl (31.0-36.0); Mean Corpuscular Hemoglobin 31.5 pg (27.0-33.0); Mean Corpuscular Volume 91.2 fL (80.0-98.0); Mean Platelet Volume 9.3 fL (9.4-12.4); Platelet Count 375 X10*3/uL (160-400); Red Blood Count 4.79 X10*6/uL (4.60-5.80); Red Cell Distribution Width 12.7 % (11.0-16.0)
[2024-12-25 14:55] LABS: Alanine Aminotransferase 21 U/L (0-40); Albumin Level 4.8 g/dL (3.5-5.0); Alkaline Phosphatase 43 U/L (39-117); Amylase 61 U/L (28-100); Anion Gap 8 (12-20); Aspartate Amino Transferase 22 U/L (5-37); Bilirubin Total 0.4 mg/dL (0.0-1.0); Blood Urea Nitrogen 13 mg/dL (9-16); Calcium 9.8 mg/dL (8.4-10.2); Carbon Dioxide 31 mmol/L (22-29); Chloride 105 mmol/L (96-108); Estimated Glomerular Filt Rate > 60; Glucose Random 99 mg/dL (60-115); Lipase 17 U/L (8-78); Potassium 4.2 mmol/L (3.3-5.1); Sodium 140 mmol/L (135-145); Total Protein 7.5 g/dL (6.5-8.0)
[2024-12-25 15:09] LABS: TSH reflex Free T4 0.77 uIU/mL (0.32-4.0)
--- OUTSIDE RECORDS SUMMARY | 2024-12-25 15:58 | XMS_ITS | Encounter Summary ---
Author Organization [facility] Address [address] [place] [address] Phone Care Team Providers Care Hardboard Press Operator Name Role Phone Jose M Hatch MD Primary Care Provider [phone] Encounter Details Date Type Department Care Team (Late st Contact Info) Description 08/17/2010 Documentation [facility] Family Medicine [address] [place] [address] Family Medicine, Physician [address] [place], [place] [address] Social History Tobacco Use Types Packs/Day Years [...] on filedocumented in this encounter Care Teams Hardboard Press Operator Relationship Specialty Start Date End Date Jose M Hatch MD [address] [place] [address] [place] [address] PCP - General 05/05/17 11/10/22 documented as of this encounter
--- OUTSIDE RECORDS SUMMARY | 2024-12-25 15:58 | XMS_ITS | Clinical Summary ---
Author Organization [facility] Address [address] [place] [address] Phone Care Team Providers Care Fire Safety Director Name Role Phone Unavailable Primary Care Provider [...] of Obesity, No family history of Sudden /[place] under age 55, No family history of [...] patient's age to complete this topic Insurance [facility] PPO
--- OUTSIDE RECORDS SUMMARY | 2024-12-25 15:58 | XMS_ITS | Encounter Summary ---
Author Organization [facility] Address [address] [place] [address] Phone Care Team Providers Care Aerospace Stress Engineer Name Role Phone Jose M Hatch MD Primary Care Provider [phone] Encounter Details Date Type Department Care Team (Late st Contact Info) Description 05/11/2017 Conversion Encounter [facility] [place] [address] [place] [address] Social History Tobacco Use Types Packs/Day Years [...] on filedocumented in this encounter Care Teams Aerospace Stress Engineer Relationship Specialty Start Date End Date Jose M Hatch MD [address] [place] [address] PCP - General 05/05/17 11/10/22 documented as of this encounter
--- OUTSIDE RECORDS SUMMARY | 2024-12-25 15:58 | XMS_ITS | Encounter Summary ---
Author Organization [facility] Address [address] [place] [address] Phone Care Team Providers Care Corrosion Control Fitter Name Role Phone Jose M Hatch MD Primary Care Provider [phone] Encounter Details Date Type Department Care Team (Late st Contact Info) Description 11/21/2011 Documentation [facility] [place] Family Medicine [address] [place] [address] Family Medicine, Physician [address] [place], [place] [address] Social History Tobacco Use Types Packs/Day Years [...] on filedocumented in this encounter Care Teams Corrosion Control Fitter Relationship Specialty Start Date End Date Jose M Hatch MD [address] [place] [address] [place] [address] PCP - General 05/05/17 11/10/22 documented as of this encounter
--- OUTSIDE RECORDS SUMMARY | 2024-12-25 15:58 | XMS_ITS | Encounter Summary ---
Author Organization [facility] Address [address] [place] [address] Phone Care Team Providers Care Transitional Studies Instructor Name Role Phone Jose M Hatch MD Primary Care Provider [phone] Encounter Details Date Type Department Care Team (Late st Contact Info) Description 05/06/2015 Documentation [facility] [place] Family Medicine [address] [place] [address] Family Medicine, Physician [address] [place], [place] [address] Social History Tobacco Use Types Packs/Day Years [...] on filedocumented in this encounter Care Teams Transitional Studies Instructor Relationship Specialty Start Date End Date Jose M Hatch MD [address] [place] [address] [place] [address] PCP - General 05/05/17 11/10/22 documented as of this encounter
--- OUTSIDE RECORDS SUMMARY | 2024-12-25 15:58 | XMS_ITS | Encounter Summary ---
Author Organization [facility] Address [address] [place] [address] Phone Care Team Providers Care Dispatcher Radio Name Role Phone Jose M Hatch MD Primary Care Provider [phone] Encounter Details Date Type Department Care Team (Late st Contact Info) Description 08/17/2010 Documentation [facility] [address] [place] [address] Family Medicine, Physician [address] [place], [place] 0[address] Social History Tobacco Use Types Packs/Day Years [...] on filedocumented in this encounter Care Teams Dispatcher Radio Relationship Specialty Start Date End Date Jose M Hatch MD [address] [place] [address] [place] [address] PCP - General 05/05/17 11/10/22 documented as of this encounter
[2024-12-26 10:18] LABS: Immunoglobulin A 170 mg/dL (47-310)
[2024-12-26 17:53] LABS: Transglutaminase IgA <1.0 U/mL
== END 2024-12-25 12:47 | disposition home or self-care (01) ==
LOC: HO.LAB 12:46
PROVIDERS: Visit Provider Internal Medicine
DX: R10.9 Unspecified abdominal pain (principal)
CPT/HCPCS: 36415; 80053; 82150; 82784; 83690; 84443; 85027; 86364

== ENCOUNTER 2024-12-25 12:46 | Outpatient (AMB) | payer BC, SELFPAY ==
--- NOTE | 2024-12-25 12:49 | MHC.OFFVIS ---
Vital Signs 12/25/24 12:51 Height 6 ft 4 in Weight 187 lb 6.287 oz BMI 22.8 BP 147/84 H Blood Pressure Location Lt brachial Position Sitting Pulse 112 H Intake Visit Reasons: Abd pain Intake Note: Babak presents in the office as a new patient for abdominal pains. CC: HE states that he has the pains in the LLQ and it is also in the epigastric region that goes to the LUQ and to his back. States he has pictures of his stools they have been loose and broken up. Not like diarrhea but loose. States he had his cardio cleared because symptoms seemed to be chest/heart related at one point. Allergies prednisone Allergy (Unknown, Verified 12/25/24 12:51) Unknown HPI Comments Details: 24 y.o M with [facility] if who is here for mid epigastric pain. Describes as dull epigastric pain along with pinching and tightness along the LUQ which radiates to his back. Also has dull LLQ pain. Happens typically post prandially within 1 hour. Gets better as he adjusts his position. Trialed Omeprazole 10 earlier this year but not on empty stomach. Assoc with loose BMs which float . Stools are brown but sometimes sees blood on wiping. Defecation is not painful. Diet is mostly low in fiber. [facility] Family History (Updated 12/25/24 @ 12:52 by GOLDEN Lockwood) Maternal Grandfather Lung cancer Review of Systems Const All systems reviewed & are unremarkable except as noted in HPI and below Physical Exam Vital Signs: Last Vital Signs Pulse 112 H 12/25/24 12:51 BP 147/84 H 12/25/24 12:51 BMI result Body Mass Index 22.8 No apparent distress Nonicteric Abdomen soft, nondistended, no hepatomegaly splenomegaly Alert and oriented x3, normal gait Results Reviewed Results Reviewed: Echo 12/18/24 - [facility] Summary The left ventricle is normal in size, wall thickness and systolic function. The ejection fraction is 55-60%. No regional wall motion abnormalities seen. The left atrium is borderline dilated. The right ventricle is mildly dilated. Right ventricular systolic function appears preserved. The right atrium is mildly dilated. An accurate pulmonary artery pressure could not be obtained. The inferior vena cava is probably severely dilated. Recommendation Suggest repeat study with agitated saline contrast. Assessment & Plan Assessment & Plan (1) Abdominal pain: Code(s): R10.9 - Unspecified abdominal pain Category: Medical (2) Rib pain on left side: Code(s): R07.81 - Pleurodynia Category: Medical Plan 1. Epigastric pain Ddx include gastritis, esophagitis, PUD, celiac, symptomatic gallstones. Plan: - Labs as below - US abd - barium swallow - EGD to be booked -- pt with new finding of dilated IVC and R atrial dilation. Will be booked after seen by Cardiology. - Appropriate administration of PPI reviewed 2. LUQ pain Consistent with MSK pain based on description. June as movement related and description of pinching rib sensation Recommend discussion with PCP for further eval and tx of slipped ribs vs costochondritis. Follow up after egd Orders: Orders Complete Blood Count no Diff Today R10.9 - Unspecified abdominal pain Comprehensive Met. Panel Today R10.9 - Unspecified abdominal pain Immunoglobulin A Today R10.9 - Unspecified abdominal pain Transglutaminase IgA Today R10.9 - Unspecified abdominal pain TSH reflex Free T4 Today R10.9 - Unspecified abdominal pain US abdomen complete Today R10.9 - Unspecified abdominal pain FL barium swallow Today R10.9 - Unspecified abdominal pain Amylase Today R10.9 - Unspecified abdominal pain Lipase Today R10.9 - Unspecified abdominal pain Coding Level of Care Code New Pt Level 4 (72031) Diagnoses Abdominal pain R10.9 Rib pain on left side R07.81
[2024-12-25 12:51] VITALS: BP 147/84; PULSE 112; BMI 22.8
--- OUTSIDE RECORDS SUMMARY | 2024-12-25 15:17 | XMS_ITS ---
Author Name [facility] Organization Unknown Encounters Encounter Type Encounter Reason Primary Diagnosis Location Date Ambulatory [facility], [facility]. ([facility]) 09/14/2024
--- OUTSIDE RECORDS SUMMARY | 2024-12-25 15:17 | XMS_ITS | Encounter Summary ---
Author Organization [facility] Address [address] [place] [address] Phone Care Team Providers Care Granite Countertop Installer Name Role Phone Jose M Hatch MD Primary Care Provider [phone] Encounter Details Date Type Department Care Team (Late st Contact Info) Description 08/17/2010 Documentation [facility] [address] [place] [address] Family Medicine, Physician [address] [place], [place] [address]60[address] Social History Tobacco Use Types Packs/Day Years [...] on filedocumented in this encounter Care Teams Granite Countertop Installer Relationship Specialty Start Date End Date Jose M Hatch MD [address] [place] [address] [place] [address] PCP - General 05/05/17 11/10/22 documented as of this encounter
--- OUTSIDE RECORDS SUMMARY | 2024-12-25 15:17 | XMS_ITS | Encounter Summary ---
Author Organization [facility] Address [address] [place] [address] Phone Care Team Providers Care Talent Sourcer Name Role Phone Jose M Hatch MD Primary Care Provider [phone] Encounter Details Date Type Department Care Team (Late st Contact Info) Description 11/21/2011 Documentation [facility] [place] Family Medicine [address] [place] [address] Family Medicine, Physician [address] [place], [place] 9[address] Social History Tobacco Use Types Packs/Day Years [...] on filedocumented in this encounter Care Teams Talent Sourcer Relationship Specialty Start Date End Date Jose M Hatch MD [address] [place] [address] [place] [address] PCP - General 05/05/17 11/10/22 documented as of this encounter
--- OUTSIDE RECORDS SUMMARY | 2024-12-25 15:17 | XMS_ITS | Encounter Summary ---
Author Organization [facility] Address [address] [place] [address] Phone Care Team Providers Care Plate Conditioner Name Role Phone Jose M Hatch MD Primary Care Provider [phone] Encounter Details Date Type Department Care Team (Late st Contact Info) Description 05/06/2015 Documentation [facility] [place] Family Medicine [address] [place] [address] Family Medicine, Physician [address] [place], [place] [address] Social History Tobacco Use Types Packs/Day Years [...] on filedocumented in this encounter Care Teams Plate Conditioner Relationship Specialty Start Date End Date Jose M Hatch MD [address] [place] [address] [place] [address] PCP - General 05/05/17 11/10/22 documented as of this encounter
--- OUTSIDE RECORDS SUMMARY | 2024-12-25 15:17 | XMS_ITS | Encounter Summary ---
Author Organization [facility] Address [address] [place] [address] Phone Care Team Providers Care Skin Carver Name Role Phone Jose M Hatch MD Primary Care Provider [phone] Encounter Details Date Type Department Care Team (Late st Contact Info) Description 08/17/2010 Documentation [facility] Family [facility] [address] [place] [address] Family Medicine, Physician [address] [place], [place] [address] Social History Tobacco Use Types Packs/Day Years [...] on filedocumented in this encounter Care Teams Skin Carver Relationship Specialty Start Date End Date Jose M Hatch MD [address] [place] [address] [place] [address] PCP - General 05/05/17 11/10/22 documented as of this encounter
--- OUTSIDE RECORDS SUMMARY | 2024-12-25 15:17 | XMS_ITS | Data Portability ---
Author Organization ALEJANDRO Salvador [facility], [address] Address [address] [place] [address] Assessment No assessment recorded. Plan of Treatment Reminders Order Date Submit Date Provider Last Modified By Organization Details Last Modified Time Details Appointments None recorded. Lab rapid strep group A, throat 2023 024 [email or web address] [facility], [address] [place] [address], [id number], 11:07:40 streptococc us group A, culture, throat 2023 024 COW[facility] ([facility], [address] [place] [address], [place], [address], 08:07:11 Referral None recorded. Procedures None recorded. Surgeries None recorded. Imaging None recorded. Medication Orders None recorded. Patient TargetsNo targets recorded. Patient Instructions Encounter Date Encounter Id Patient Instructions Last Modified By Organization Details Last Modified Time 09/14/2024 [id number] sore throat: car e instructions [email or web address] Not available 09/14/2024 11:07:40 Reason for Referral None Reported. Results Created Date Observation Date Name Description Value Unit Range Abnormal Flag Note LastModifiedBy Organization Detail LastModifiedTime 09/14/2009/17/2024 BETA STREP GP A CULTU RE beta strep gp A culture NEGATI VE Refer ence Range : Negat che Not Available [facility] ([facility]) [address] [facility], [place], [address], 09/17/2024 08:07:10 09/14/2009/14/2024 rapid strep group A, throa t Unknown Analyte negati ve Not Available [id number] [place] [address], [id number], 09/14/2024 10:56:58 Result Notes None recorded. Problems No Known Problems Medical Equipment None Reported. Allergies Allergen ID Allergen Name Allergen Category Reaction Reaction Severity Criticality Documentation Date Start Date Code Code System Note Provider Name and Address Organization Details Recorded Time [id number] prednison e medicatio n Not available Not available Not available 09/14/2024 8640 RxNorm Fany olmos, [place] - [facility] 10:56:10 Medications Name Sig Start Date Stop Date Status Note LastModified by Organization Details LastModified Time ibuprofen 600 mg tablet active Not Available Not Available No t Available amoxicillin 500 mg-potassium clavulanate 125 mg tablet 2023 completed Not Available Not Available Not Available Vitals Date Recorded Body height Body mass index (BMI) Body weight Oxygen saturation Oxygen saturation in Arterial blood by Pulse oximetry Pain severity - 0-10 verbal numeric rating [Score] - Reported Heart rate Respiratory rate Body temperature Systolic blood pressure Diastolic blood pressure Provider Name and Address Organization Details Last Updated DateTime 193.04 cm 23.7 kg/m2 73430.5 1 g 99 % 99 % 0 89 /min 18 /min 97.7 [degF] 138 mm[Hg] 84 mm[Hg] Fany Rayo PA - [facility] 10:57:54 Social History Question Answer Notes LastModified by Organizat ion Details LastModified Time Tobacco Smoking Status Never Smoker Fany olmos, PA - [facility] 09/14/2024 10:56:45 What [...] SNOMED-CT Code Diagnosis ICD10 Code Diagnosis Note [id number] Nina_Colby [address] [address] 08/04/2018 09:46:46 08/04/2018 10:56:[id number] [address] 11/01/2019 19:27:02 11/01/2019 19:51:[id number] [address] 05/18/2019 16:31:26 05/18/2019 16:48:11 [id number] ALEJANDRO Sorenson 21009_[address] [facility] [address] [place] [address] 09/14/2024 10:51:42 09/14/2024 11:08:29 Acute pharyngitis [id number] J02.9 Based on your Presentati on, Exam, [...] . Severe Headache Thank you for using [employer] today, please feel free to contact our office if you have any questions or concerns. Health Concerns Section Related Observation LastModified by Organization Eliazar ls LastModified Time None Recorded Concern Status LastModified by Organization Details LastModified Time None Recorded Advance Directives Directive None Recorded Payers Encounter Date Sequence Insurance Name Policy Number Policy Krause Covered Member ID Krause Member ID Guarantor Name 08/04/2018 1 [place] [id number] Man Abdullahi [id number] Tomas Ibarraalesha 05/18/2019 1 [place] [id number] Man [id number] Tomas Ibarrarosyi 11/01/2019 1 [place] [id number] Man [id number] Tomas Staceyalesha 09/14/2024 1 [place] [id number] Man Abdullahi [id number] Tomas Ibarraalesha Notes Date Note Type Note Provider Name and Address Organization Details Recorded Time 09/14/2024 text/html 24 y/o male with sore throat for 2 days. Had sore throat 3 weeks ago, treated for strep based on exam, neg rapid, no cx.Symptoms improved a little, then restarted. He was also treated for an ear infection at the time ALEJANDRO Sorenson [address], [place], [address], [place] - [facility] 09/14/2024 11:10:50
--- OUTSIDE RECORDS SUMMARY | 2024-12-25 15:18 | XMS_ITS | Clinical Summary ---
Author Organization [facility] Address [address] [place] [address] Phone Care Team Providers Care Yeast Washer Name Role Phone Unavailable Primary Care Provider Unavailabl e Allergies No known active allergies Medications No known medications Immunizations Immunization Administration Dates Next Due DTaP 5 06/26/2002, [...] of Obesity, No family history of Sudden /[place] under age 55, No family history of [...] patient's age to complete this topic Insurance [facility] PPO
--- OUTSIDE RECORDS SUMMARY | 2024-12-25 15:18 | XMS_ITS | Encounter Summary ---
Author Organization [facility] Address [address] [place] [address] Phone Care Team Providers Care Manager Environmental Health And Safety Name Role Phone Jose M Hatch MD Primary Care Provider Encounter Details Date Type Department Care Team (Late st Contact Info) Description 05/11/2017 Conversion Encounter [facility] [place] [address] [place] [address] Social History Tobacco Use Types Packs/Day Years [...] on filedocumented in this encounter Care Teams Manager Environmental Health And Safety Relationship Specialty Start Date End Date Jose M Hatch MD [address] [place] [address] PCP - General 05/05/17 11/10/22 documented as of this encounter
== END 2024-12-25 13:17 | disposition home or self-care (01) ==
LOC: HO.HGI 12:47
PROVIDERS: PCP Family Medicine; Visit Provider Internal Medicine
DX: R10.9 Unspecified abdominal pain (principal); R07.81 Pleurodynia
CPT/HCPCS: 99204

== ENCOUNTER 2025-02-07 10:20 | Outpatient (REF) | payer BC, SELFPAY ==
--- NOTE | ~2025-02-07 | US_ITS ---
EXAMINATION: US ABDOMEN HISTORY: R10.9 - Unspecified abdominal pain TECHNIQUE: Real-time grayscale ultrasound imaging of the abdomen was performed and images were reviewed. COMPARISON: Comparison is made with the prior examination dated 03/17/2018. FINDINGS: Liver: The right lobe of the liver measures 16.7 cm in size. The left lobe of the liver measures 12.2 cm in size. The liver demonstrates normal homogeneous echotexture. No focal mass or intrahepatic biliary ductal dilatation is identified. There is normal hepatopedal flow in the portal vein. Gallbladder and biliary tree: The gallbladder is unremarkable, without evidence of calculi, wall thickening, or pericholecystic fluid. There is no sonographic Hinkle sign. The common bile duct is normal in caliber measuring 2 mm. Kidneys: The right kidney measures 10.8 cm in length. The left kidney measures 10.7 cm in length. The lower pole of the left kidney is partially obscured by bowel gas. The kidneys are otherwise unremarkable, without evidence of masses, hydronephrosis, or calculi. Pancreas: The pancreatic head, neck, and body are unremarkable. The pancreatic tail is obscured by bowel gas. Spleen: The spleen is normal in size and contour, measuring 10.9 cm in length. Abdominal aorta and inferior vena cava: The visualized portions of the abdominal aorta and inferior vena cava are normal in caliber. There is no free fluid in the abdomen. US/US abdomen complete IMPRESSION: Hepatomegaly. Otherwise unremarkable abdominal ultrasound. Electronically signed by: Ramon Cunningham MD 02/07/2025 11:23 AM EDT
--- OUTSIDE RECORDS SUMMARY | 2025-02-07 10:37 | XMS_ITS | Encounter Summary ---
Author Organization [facility] Address [address] [place] [address] Phone Care Team Providers Care Call Center Supervisor Name Role Phone Jose M Hatch MD Primary Care Provider Encounter Details Date Type Department Care Team (Late st Contact Info) Description 11/21/2011 Documentation [facility] [place] Family Medicine [address] [place] [address] Family Medicine, Physician [address] [place], [place] [address] Social History Tobacco Use Types Packs/Day Years [...] on filedocumented in this encounter Care Teams Call Center Supervisor Relationship Specialty Start Date End Date Jose M Hatch MD [address] [place] [address] [place] [address] PCP - General 05/05/17 11/10/22 documented as of this encounter
--- OUTSIDE RECORDS SUMMARY | 2025-02-07 10:37 | XMS_ITS | Encounter Summary ---
Author Organization [facility] Address [address] [place] [address] Phone Care Team Providers Care Collections Specialist Name Role Phone Jose M Hatch MD Primary Care Provider Encounter Details Date Type Department Care Team (Late st Contact Info) Description 05/06/2015 Documentation [facility] [place] Family Medicine [address] [place] [address] Family Medicine, Physician [address] [place], [place] [address]67[address] Social History Tobacco Use Types Packs/Day Years [...] on filedocumented in this encounter Care Teams Collections Specialist Relationship Specialty Start Date End Date Jose M Hatch MD [address] [place] [address] [place] [address] PCP - General 05/05/17 11/10/22 documented as of this encounter
--- OUTSIDE RECORDS SUMMARY | 2025-02-07 10:38 | XMS_ITS | Encounter Summary ---
Author Organization [facility] Address [address] [place] [address] Phone Care Team Providers Care Otr Refrigerated Cdl Truck Driver Name Role Phone Jose M Hatch MD Primary Care Provider [phone] Encounter Details Date Type Department Care Team (Late st Contact Info) Description 08/17/2010 Documentation [facility] [address] [place] [address] Family Medicine, Physician [address] [place], [place] [address] Social History Tobacco Use Types Packs/Day Years [...] on filedocumented in this encounter Care Teams Otr Refrigerated Cdl Truck Driver Relationship Specialty Start Date End Date Jose M Hatch MD [address] [place] [address] [place] [address] PCP - General 05/05/17 11/10/22 documented as of this encounter
--- OUTSIDE RECORDS SUMMARY | 2025-02-07 10:38 | XMS_ITS | Data Portability ---
Author Organization ALEJANDRO Salvador [facility], [address] Address [address] [place] [address] Assessment No assessment recorded. Plan of Treatment Reminders Order Date Submit Date Provider Last Modified By Organization Details Last Modified Time Details Appointments None recorded. Lab rapid strep group A, throat 2023 024 [email or web address] [facility], [address] [place] [address], [phone], 11:07:40 streptococc us group A, culture, throat 2023 024 [place] [facility] ([facility], [address] [place] [address], [place], [address], 08:07:11 Referral None recorded. Procedures None recorded. Surgeries None recorded. Imaging None recorded. Medication Orders None recorded. Patient TargetsNo targets recorded. Patient Instructions Encounter Date Encounter Id Patient Instructions Last Modified By Organization Details Last Modified Time 09/14/2024 [id number] sore throat: car e instructions [email or web address] Not available 09/14/2024 11:07:40 Reason for Referral None Reported. Results Created Date Observation Date Name Description Value Unit Range Abnormal Flag Note LastModifiedBy Organization Detail LastModifiedTime 09/14/2009/17/2024 BETA STREP GP A CULTU RE beta strep gp A culture NEGATI VE Refer ence Range : Negat che Not Available [facility] ([facility]) [address] [facility], [place], [address], 09/17/2024 08:07:10 09/14/2009/14/2024 rapid strep group A, throa t Unknown Analyte negati ve Not Available [id number] [place] [address], [phone], 09/14/2024 10:56:58 Result Notes None recorded. Problems [...] Last Updated DateTime 193.04 cm 23.7 kg/m2 63320.5 1 g 99 % 99 % 0 89 /min 18 /min 97.7 [degF] 138 mm[Hg] 84 mm[Hg] Fany Rayo PA - [facility] 10:57:54 Social History Question Answer Notes LastModified by Organizat ion Details LastModified Time Tobacco Smoking Status Never Smoker Fany olmos, PA - [facility] 09/14/2024 10:56:45 Have You Had A Flu Shot This Season? No Information not available 09/14/2024 If No, Would You Like A Flu Shot Today? No Information not available 09/14/2024 What Was The Date Of Your Most Recent Tobacco Screening? 09/14/2024 Information not available 09/14/2024 Have You Recently Traveled Abroad? No Information not available 09/14/2024 Sex: Unknown Functional Status Question Answer Note LastModified by Organizat ion Details LastModified Time Do you use any illicit or recreational drugs? Yes Information not available 09/14/2024 Do you or have you ever used any other forms of tobacco or nicotine? No Information not available 09/14/2024 What is your level of alcohol consumption? Occasional Information not available 09/14/2024 Mental Status None recorded. Family History Relationship [...] SNOMED-CT Code Diagnosis ICD10 Code Diagnosis Note [id number] [address] [facility] [address] [place] [phone] 08/04/2018 09:46:46 08/04/2018 10:56:29 [id number] [address] [facility] [address] [place] [address] 11/01/2019 19:27:02 11/01/2019 19:51:44 [id number] [address] [place] [phone] 05/18/2019 16:31:26 05/18/2019 16:48:11 [id number] ALEJANDRO Sorenson [address] [place] [address] 09/14/2024 10:51:42 09/14/2024 11:08:29 Acute pharyngitis [id number] J02.9 Based on your Presentati on, Exam, [...] . Severe Headache Thank you for using [facility] today, please feel free to contact our office if you have any questions or concerns. Health Concerns Section Related Observation LastModified by Organization Detai ls LastModified Time None Recorded Concern Status LastModified by Organization Details LastModified Time None Recorded Advance Directives Directive None Recorded Payers Insurance Date Sequence Insurance Name Policy Number Policy Krause Covered Member ID Krause Member ID Guarantor Name 09/14/2024 1 [place] [id number] Man Abdullahi [id number] Tomas Abdullahi Notes Date Note Type Note Provider Name and Address Organization Details Recorded Time 09/14/2024 text/html 24 y/o male with sore throat for 2 days. Had sore throat 3 weeks ago, treated for strep based on exam, neg rapid, no cx.Symptoms improved a little, then restarted. He was also treated for an ear infection at the time ALEJANDRO Sorenson [address] [place], [address], [place] - [facility] 09/14/2024 11:10:50
--- OUTSIDE RECORDS SUMMARY | 2025-02-07 10:38 | XMS_ITS | Encounter Summary ---
Author Organization [facility] Address [address] [place] [address] Phone Care Team Providers Care Ice Delivery Driver Name Role Phone Jose M Hatch MD Primary Care Provider [phone] Encounter Details Date Type Department Care Team (Late st Contact Info) Description 08/17/2010 Documentation [facility] [address] [place] [address] Family Medicine, Physician [address] [place], [place] [id number] Social History Tobacco Use Types Packs/Day Years [...] on filedocumented in this encounter Care Teams Ice Delivery Driver Relationship Specialty Start Date End Date Jose M Hatch MD [address] [place] [address] [place] [address] PCP - General 05/05/17 11/10/22 documented as of this encounter
--- OUTSIDE RECORDS SUMMARY | 2025-02-07 10:38 | XMS_ITS | Clinical Summary ---
Author Organization [facility] Address [address] [place] [address] Phone Care Team Providers Care Vocal Performer Name Role Phone Unavailable Primary Care Provider [...] of Obesity, No family history of Sudden /TX under age 55, No family history of [...] patient's age to complete this topic Insurance [facility] PPO
--- OUTSIDE RECORDS SUMMARY | 2025-02-07 10:38 | XMS_ITS | Encounter Summary ---
Author Organization [facility] Address [address] [place], [place] [phone] Phone Care Team Providers Care Lurer Name Role Phone Jose M Hatch MD Primary Care Provider [phone] Encounter Details Date Type Department Care Team (Late st Contact Info) Description 05/11/2017 Conversion Encounter [facility] [place] [address] [place] [address] Social History Tobacco Use Types Packs/Day Years [...] on filedocumented in this encounter Care Teams Lurer Relationship Specialty Start Date End Date Jose M Hatch MD [address] [place] [address] PCP - General 05/05/17 11/10/22 documented as of this encounter
== END 2025-02-07 10:21 | disposition home or self-care (01) ==
LOC: HO.US 10:20
PROVIDERS: Visit Provider Internal Medicine
DX: R10.9 Unspecified abdominal pain (principal)
CPT/HCPCS: 76700

== ENCOUNTER → 2025-02-07 10:22 | Outpatient (BNV) | payer BC, SELFPAY | PROVIDERS: Visit Provider Radiology Diagnostic Radiology | DX: R16.0 Hepatomegaly, not elsewhere classified (principal) | CPT/HCPCS: 76700 ==

== ENCOUNTER 2025-02-20 09:46 | Outpatient (REF) | payer BC, SELFPAY ==
--- NOTE | ~2025-02-20 | FL_ITS ---
EXAMINATION: XR BARIUM SWALLOW CLINICAL INFORMATION: Epigastric pain COMPARISON: None available. TECHNIQUE: Routine barium swallow was performed with thick barium and barium coated saltine crackers in upright view and thin barium in prone lying position. FINDINGS: Following oral administration of thick barium there is normal propagation bolus from the oral cavity through the pharynx, esophagus into stomach without any evidence of obstruction, narrowing or stricture. No laryngeal penetration or aspiration seen. On oral administration of saltine crackers coated with barium in upright view there is normal oral mastication and propagation of bolus from the oral cavity, pharynx and esophagus into stomach without obstruction or narrowing. On placing patient in prone lying and oral administration of thin barium there is greater opacification of the entire esophagus without intraluminal filling defect or narrowing. There is minimal gastroesophageal reflux without hiatal hernia. FLUOROSCOPY TIME: 2 minutes 11 seconds DOSE AREA PRODUCT: 1317 uGy-m2 (microgray-meter squared) FL/FL barium swallow IMPRESSION: Minimal gastroesophageal reflux without hiatal hernia. Electronically signed by: Alek Hayes MD 02/21/2025 07:53 AM EDT
--- OUTSIDE RECORDS SUMMARY | 2025-02-20 10:04 | XMS_ITS | Encounter Summary ---
Author Organization [facility] Address [address] [place] [address] Phone Care Team Providers Care Gas Pumping Station Supervisor Name Role Phone Jose M Hatch MD Primary Care Provider [phone] Encounter Details Date Type Department Care Team (Late st Contact Info) Description 05/06/2015 Documentation [facility] Family Medicine [address] [place] [address] Family Medicine, Physician [address] [place], [place] [address] Social History Tobacco Use Types Packs/Day Years [...] on filedocumented in this encounter Care Teams Gas Pumping Station Supervisor Relationship Specialty Start Date End Date Jose M Hatch MD [address] [place] [address] [place] [address] PCP - General 05/05/17 11/10/22 documented as of this encounter
== END 2025-02-20 09:47 | disposition home or self-care (01) ==
LOC: HO.XRAY 09:46
PROVIDERS: Visit Provider Internal Medicine
DX: R10.9 Unspecified abdominal pain (principal)
CPT/HCPCS: 74220

== ENCOUNTER → 2025-02-20 09:47 | Outpatient (BNV) | payer BC, SELFPAY | PROVIDERS: Visit Provider Radiology Diagnostic Radiology | DX: K21.9 Gastro-esophageal reflux disease without esophagitis (principal) | CPT/HCPCS: 74246 ==

== ENCOUNTER 2025-04-30 08:47 | Outpatient (AMB) | payer BC, SELFPAY ==
--- NOTE | 2025-04-30 08:47 | MHC.OFFVIS ---
Intake Visit Reasons: GI series results Intake Note: Tomas presents as a telehealth to go over results to his GI series, CC: States that none of his issues have resolved - same symptoms as before. Research Leader Required: No Allergies prednisone Allergy (Unknown, Verified 04/30/25 08:48) Unknown HPI Comments Details: 24 y.o M with [facility] if who is here for mid epigastric pain. Describes as dull epigastric pain along with pinching and tightness along the LUQ which radiates to his back. Also has dull LLQ pain. Happens typically post prandially within 1 hour. Gets better as he adjusts his position. Trialed Omeprazole 10 earlier this year but not on empty stomach. Assoc with loose BMs which float . Stools are brown but sometimes sees blood on wiping. Defecation is not painful. Diet is mostly low in fiber. 04/30/25: Here for telehealth visit. Reports persistent pain under L rib. Mostly at night. Stabbing type pain which lasts a few seconds. Assoc with pain in L back. No nausea or vomiting. Appetite is ok. Also notices streaking of red blood in brown stool. Defecation is typically painful. Sits on the toilet for long time due to tenesmus and feeling of incomplete evacuation. Also strains to try to fully evacuate. [facility] Family History Maternal Grandfather Lung cancer Review of Systems Const All systems reviewed & are unremarkable except as noted in HPI and below Physical Exam Exam Exam: Video visit: No acute distress No icterus noted No facial asymmetry Speaking in full sentences Telehealth Telehealth Telehealth Platform: [facility] Location of provider rendering services: practice address Location of patient: address on file Patient Identification confirmed using: Name, : Yes Telehealth method: video Patient verbally consented to treatment: Yes Patient verbally consented to billing insurance company: Yes Patient informed of any privacy concerns related to visit: Yes Minutes spent on Phone/Video with Pt.: 14 Assessment & Plan Assessment & Plan (1) Abdominal pain: Code(s): R10.9 - Unspecified abdominal pain Category: Medical (2) Rib pain on left side: Code(s): R07.81 - Pleurodynia Category: Medical Plan 1. LUQ pain Consistent with MSK pain based on description. June as movement related and description of pinching rib sensation. EGD pending cardiology visit later this month. If EGD negative, will be referred back to PCP for discussion re costochondritis vs slipped rib needing nerve block 2. Rectal bleeding Scant, painful. No significant drop in H/H. Ddx include anal fissure, hemorrhoids, SURS, proctitis. Plan: - Add flex sig to EGD - CLD the day before, x2 enema Follow up after procedures Medications: New bisacodyl (Fleet Bisacodyl) 5 mg rectally; Administer 1 bottle the evening before, and the second bottle the morning of the procedure at least 1 hour before coming in. 74 mL 0RF Coding Level of Care Code Tele Est Pt Level 4 (78091) Diagnoses Abdominal pain R10.9 Rib pain on left side R07.81
--- OUTSIDE RECORDS SUMMARY | 2025-04-30 08:58 | XMS_ITS | Encounter Summary ---
Author Organization [facility] Address [address] [place] [address] Phone Care Team Providers Care Ob/Gyn Physician Name Role Phone Jose M Hatch MD Primary Care Provider [phone] Encounter Details Date Type Department Care Team (Late st Contact Info) Description 05/06/2015 Documentation [facility] Family Medicine [address] [place] [address] Family Medicine, Physician [address] [place], [place] [address] Social History Tobacco Use Types Packs/Day Years [...] on filedocumented in this encounter Care Teams Ob/Gyn Physician Relationship Specialty Start Date End Date Jose M Hatch MD [address] [place] [address] [place] [address] PCP - General 05/05/17 11/10/22 documented as of this encounter
--- OUTSIDE RECORDS SUMMARY | 2025-04-30 08:58 | XMS_ITS ---
Author Name [facility] Organization Unknown Encounters Encounter Type Encounter Reason Primary Diagnosis Location Date [facility]ulatory [facility]. ([facility] 09/14/2024
--- OUTSIDE RECORDS SUMMARY | 2025-04-30 08:58 | XMS_ITS | Clinical Summary ---
Author Organization [facility] Address [address] [place] [address] Phone Care Team Providers Care Treatment Supervisor Name Role Phone Pcp, Unknown Primary Care Provider Unavailabl e Allergies Active Allergy Reactions Criticality Noted Date Comments Prednisone Anxiety Low 01/17/2023 Medications No known medications Immunizations Immunization Administration Dates Next Due Tdap 01/17/2023 Social History Tobacco Use Types Packs/Day Years Used Date Smoking Tobacco: Never Assessed Education Answer Date Recorded Are you interested in more education? Not on tejas e 01/19/2023 Are you concerned about learning? Not on file 01/19/2023 No 01/19/2023 No 01/19/2023 Digital Access Answer Date Recorded No 02/21/2023 No 02/21/2023 Reliable internet access at home? Not on file 02/21/2023 Device with a working camera? Not on file Intimate Partner Violence Answer Date R ecorded Are you denied basic needs s uch as food, clothing, or medical care? No 01/17/2023 In the past 12 months have y ou been in a relationship with a person who hurts, threatens, or tries to control you? No 01/17/2023 Are you denied basic needs s uch as food, clothing, or medical care? No 01/17/2023 In the past 12 months have y ou been in a relationship with a person who hurts, threatens, or tries to control you? No 01/17/2023 Sex and Gender Information Value Date Recorded Sex Assigned at Not on file Legal Sex Male 12:14 PM EDT Gender Identity Not on file Sexual Orientation Not on file Last Filed Vital Signs Vital Sign Reading Time Taken Comments Blood Pressure 105/63 01/17/2023 1:16 PM EDT Pulse 79 01/17/2023 1:16 PM EDT Temperature 36.6 C (97.9 F) 01/17/2023 12:26 PM EDT Respiratory Rate 18 01/17/2023 1:16 PM EDT Oxygen Saturation 99% 01/17/2023 1:16 PM EDT Inhaled Oxygen Concentration - - Weight 88.5 kg (195 lb) 01/17/2023 12:26 PM EDT Height 193 cm (6' 4 ) 01/17/2023 12:26 PM EDT Body Mass Index 23.74 01/17/2023 12:26 PM EDT Plan of Treatment Health Maintenance Due Date Last Done Comments DEPRESSION SCREENING 2010 SMOKING Hx and SMOKELESS TOBACCO SCREENING 2011 HPV VACCINES (1 - Male 3-dose series) 2013 HEPATITIS C SCREENING 2016 HIV ONE-TIME SCREENING (18-65 YEARS) 2016 COVID-19 VACCINE ( season) 2024 08/16/2021, 12/01/2020, 11/09/2020 Adult Td,Tdap Booster 01/17/2033 01/17/2023, 010 HIB VACCINES Completed 09/15/1999, 11/25, 1998, Additional history exists MENINGOCOCCAL VACCINES (ACWY) Aged Out 08/13/2010, 08/13/2010 No longer eligibl e based on patient's age to complete this topic HEPATITIS A VACCINES Completed 07/20/2015, 07/20/2015, 12/23/2014, Additional history exists MENINGOCOCCAL VACCINES (B) Aged Out N o longer eligible based on patient's age to complete this topic PNEUMOCOCCAL VACCINES (0-49 years) Aged Out No longer eligible based on patient's age to complete this topic Medical Devices Not on file Insurance [facility] OUT [facility] STATE PPO Care Teams Treatment Supervisor Relationship Specialty Start Date End Date Pcp, Unknown PCP - General 01/17/23 Additional Source Comments The information contained in this document represents components of the legal health record. It is not the complete legal health record.[facility]
== END 2025-04-30 10:15 | disposition home or self-care (01) ==
LOC: HO.HGI 08:47
PROVIDERS: PCP Internal Medicine; Visit Provider Internal Medicine
DX: R10.9 Unspecified abdominal pain (principal); R07.81 Pleurodynia
CPT/HCPCS: 99214

== ENCOUNTER 2025-06-26 06:47 | Day surgery (SDC) | payer BC, SELFPAY ==
[2025-06-24 15:23] VITALS: BMI 22.9
--- NOTE | 2025-06-25 11:15 | P.CONAN_ITS ---
Documented by User: Elza Terrell NP 06/25/25 11:44 HPI - Anesthesia Eval Consult details Narrative: 25 yr old male for Sigmoidoscopy Flexible, upper endoscopy General anxiety disorder Daily ETOH use: reports 3-4 beers daily at 04/2025 cardiology visit Daily marijuana use Seasonal asthma Abnormal echo bubble study done 2024: Pt was seen by [facility] cardiology 05/20/25 to review the echo findings and discuss upcoming endoscopy/colonoscopy. Right to left shunting could be due to small patent foramen ovale versus more likely a transpulmonary gradient, could be related to ?diagnosis of portal hypertension via hepatopulmonary syndrome or portal pulmonary hypertension regardless of presence of cirrhosis or heptomegaly. Would not recommend at transesophageal ehco or pulmonary angiography, but states okay to proceed with EGD/colonosocpy. 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 Depression NU (generalized anxiety disorder) Daily consumption of alcohol Seasonal affective disorder Seasonal asthma OCD (obsessive compulsive disorder) Epigastric discomfort Abdominal pain Family History Family History Maternal Grandfather Lung cancer Social History Social History Advance Directives: No Advance Directives Information Provided: Yes Meds Allergies Allergy/AdvReac Type Severity Reaction Status Date / Time lorazepam (From Ativan) AdvReac Severe Agitated Verified 06/26/25 07:21 prednisone AdvReac Unknown mood swings Verified 06/26/25 07:21 Home Medications ?Medication ?Instructions ?Recorded ?Confirmed ?Last Taken ?Type albuterol sulfate 90 mcg/actuation 2 puff inhalation Q 6H PRN 06/24/25 06/24/25 Unknown History aerosol inhaler Shortness Of Breath Or Wheez ing hyoscyamine sulfate 0.125 mg tablet 0.0625 mg PO QID 0 06/24/25 06/24/25 Unknown History Exam Height,Weight and Vital Signs: Height 6 ft 5.17 in Weight 88 kg Narrative Narrative: ECHO 01/2025 Left ventricle is normal in sizs, wall thickness and systolic function. The ejection fraction is 64%. Nor regional wall motion abnormalities seen. Normal diastolic function. The right ventricle is normal in size and function. The left atrium is normal in size. Agitate saline bubble study shows right to left shunting after approximately 5 cardiac cycles. Because the LA was no completely visualized during the study it is impossible to determine if there is atrial level shunting vs intrapulonary shunting (more likely if there is a delay in crossing). No significant change from November 2023 study. 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 Depression NU (generalized anxiety disorder) Daily consumption of alcohol Seasonal affective disorder Seasonal asthma OCD (obsessive compulsive disorder) Epigastric discomfort Abdominal pain Family History Family History Maternal Grandfather Lung cancer Family history of problems with anesthesia: No Surgical History History of Problems with Anesthesia: No Social History Social History Advance Directives: No Advance Directives Information Provided: Yes Meds Allergies Allergy/AdvReac Type Severity Reaction Status Date / Time lorazepam (From Ativan) AdvReac Severe Agitated Verified 06/26/25 07:21 prednisone AdvReac Unknown mood swings Verified 06/26/25 07:21 Home Medications ?Medication ?Instructions ?Recorded ?Confirmed ?Last Taken ?Type albuterol sulfate 90 mcg/actuation 2 puff inhalation Q 6H PRN 06/24/25 06/24/25 Unknown History aerosol inhaler Shortness Of Breath Or Wheez ing hyoscyamine sulfate 0.125 mg tablet 0.0625 mg PO QID 0 06/24/25 06/24/25 Unknown History Exam Airway Mallampati Class: I TM Dist: >3cm Neck ROM: Full Loose/Missing/Broken Teeth: No Heart: ok. Has right to left shunt on bubble study. See above. Lungs: ok Assessment and Plan Assessment Anesthesia Assessment: Anesthesia Plan Discussed and Chart Reviewed Final Anesthetic Review Family History of Problems with Anesthesia: No History of Problems with Anesthesia: No NPO: Yes ASA Class: III Final Preanesthetic Review: No Changes in Pt Med Stat, Meds/Allgs Chart Reviewed, Consent Obtained/Reviewed and Anes Risks/Benef Reviewed Patient Risk: Intermediate Procedure Risk: Intermediate Anesthetic Plan Anesthetic Plan: Agree w/ Assess. and Plan and TIVA Disposition: Standard PACU
[2025-06-26 07:22] VITALS: BMI 22.0
[2025-06-26 07:37] VITALS: BP 143/91; PULSE 109; RESP 16; TEMP 36.4; O2SAT 99
[2025-06-26] MEDS: Lactated Ringers 1,000 ML 100 ML IVCONT (07:47)
--- NOTE | 2025-06-26 07:53 | MHC.SHP ---
Pre-Procedural Eval Section A - 24 Hr Update-Section A only Date of Service: 06/26/25 Section B - Complete if H&P > 30 days Chief Complaint: abdominal pain,rectal bleeding Details of Present Illness: Lung cancer Present Medications: see Short Stay Collaborative assessment Allergies: Allergies Allergy/AdvReac Type Severity Reaction Status Date / Time lorazepam (From Ativan) AdvReac Severe Agitated Verified 06/26/25 07:21 prednisone AdvReac Unknown mood swings Verified 06/26/25 07:21 Review of Systems Review of Systems Comment: Ten point ROS negative Exam Exam Comment: Gen appear: No acute distress HEENT: no icterus Chest: No overt resp distress Abd: soft, nontender, nondistended Psych: Stable affect, answering questions appropriately Neuro: A/Ox3 noted to move all extremities spontaneously Ext: no peripheral edema Plan Diagnosis/Plan: Unchanged I have reviewed the history and physical and performed a pertinent physical examination on my patient. No changes have occurred unless specified. Time Spent With Patient Time: Total time managing care of this patient today ____ minutes.
--- NOTE | 2025-06-26 07:54 | PC.NURSE ---
setup patient in bathroom to perform an enema. patient wanted to do to self. teaching provided.
--- NOTE | 2025-06-26 08:03 | PC.NURSE ---
clear output per patient. after enema.
--- NOTE | 2025-06-26 09:00 | P.OPN-COLO_ITS ---
Colonoscopy Operative Note Operative Note Date of Service: 06/26/25 Narrative: Procedure: Upper endoscopy and flexible sigmoidoscopy Endoscopist: Gale Galloway MD Anesthesia Provider: Dr Matt Pro Anesthesia type: MAC Instrument: [id number] EGD Procedure:?? The procedure, indications, preparation and potential complications were reviewed with the patient, who indicated understanding and gave written informed consent to proceed. The endoscope was introduced through the mouth, and advanced to the 2nd part of the duodenum. The mucosa was carefully examined on slow withdrawal of the endoscope. The patient tolerated the procedure well. There were no immediate complications.? EGD Findings:? * Esophagus:? Normal esophageal mucosa was noted. There was a small esophageal nodule measuring 2 cm at 35 cm from incisors. Cold forceps biopsies were taken for histology. The Z-line was at 45 cm. Cold forceps biopsies were taken from middle and lower esophagus to rule out eosinophilic esophagitis. * Stomach:? Mild erythema in the cardia. Retroflexion was performed in the cardia that showed Hill grade III hiatal hernia. Random cold forceps biopsies were taken from the stomach. * Duodenum:? Normal duodenal mucosa. Cold forceps biopsies were taken from the duodenal bulb and 2nd portion of the duodenum to rule out celiac sprue. Flexible Sigmoidoscopy Procedure:? The patient was then turned for the sigmoidoscopy. A digital rectal exam was performed which was normal.? The gastroscope was then inserted through the anus and advanced through the colon to the proximal transverse colon. Mucosa was carefully examined under high definition white light as the instrument was slowly withdrawn in a retrograde panoramic fashion. Retroflexion was performed in rectum. The procedure was not difficult. The quality of the prep was good. Limitations: No limitations Findings: Mucosa: Normal colon mucosa. Protruding lesions: * Large internal hemorrhoids with stigmata of recent bleeding. Impression: 1. Normal esophagus (biopsy) 2. Esophageal nodule (biopsy) 3. Hiatal hernia 4. Gastritis (biopsy) 5. Normal duodenum (biopsy) 6. Normal colon mucosa 7. Internal hemorrhoids Recommendations:?? * Follow-up path results * Avoid NSAIDs * Start famotidine 20 mg once daily * Start anusol suppositories x 10-12 days at bedtime. * Commence colonoscopy for asymptomatic CRC screening at 43 y/o.
[2025-06-26 09:02] VITALS: BP 102/64; PULSE 73; RESP 18; TEMP 36.1; O2SAT 96
[2025-06-26 09:17] VITALS: BP 97/64; PULSE 65; RESP 18; O2SAT 96
[2025-06-26 09:30] VITALS: BP 92/67; PULSE 66; RESP 20; TEMP 36.4; O2SAT 99
== END 2025-06-26 09:55 | disposition home or self-care (01) ==
PROVIDERS: PCP Internal Medicine; Visit Provider Internal Medicine
PROC: 0DJD8ZZ Inspection of Lower Intestinal Tract, Via Natural or Artificial Opening Endoscopic (ICD-10-PCS; CPT 45330; principal; 2025-06-26 08:20)
PROC: 0DJ08ZZ Inspection of Upper Intestinal Tract, Via Natural or Artificial Opening Endoscopic (ICD-10-PCS; CPT 43235; 2025-06-26 08:20)
DX: K62.5 Hemorrhage of anus and rectum (principal); R10.12 Left upper quadrant pain; K22.89 Other specified disease of esophagus; K44.9 Diaphragmatic hernia without obstruction or gangrene; K29.70 Gastritis, unspecified, without bleeding; K64.8 Other hemorrhoids
CPT/HCPCS: 45330; 43239; 88305; 88313; 88342; J2003; J2704

== ENCOUNTER → 2025-06-26 06:47 | Outpatient (BNV) | payer BC, SELFPAY | PROVIDERS: PCP Internal Medicine; Visit Provider Internal Medicine | DX: R10.9 Unspecified abdominal pain (principal); K22.81 Esophageal polyp; K29.70 Gastritis, unspecified, without bleeding; K62.5 Hemorrhage of anus and rectum; K64.8 Other hemorrhoids | CPT/HCPCS: 43239; 45330 ==

== ENCOUNTER 2025-07-09 09:13 | Outpatient (AMB) | payer BC, SELFPAY ==
--- NOTE | 2025-07-09 09:13 | A.OFFVIS_ITS ---
Intake Visit Reasons: s/p DOUBLE Intake Note: Dolores presents as a telehealth to go over results to his EGD and COLO. CC: states that he has chronic diarrhea that in the past week has become more loose and liquidy. States that he is also getting a sharp pain that goes to the back of his right shoulder. Allergies lorazepam (From Ativan) Adverse Reaction (Severe, Verified 07/09/25 09:14) Agitated prednisone Adverse Reaction (Unknown, Verified 07/09/25 09:14) mood swings HPI Comments Details: 24 y.o M with PENDING SALE TO [facility] if who is here for mid epigastric pain. Describes as dull epigastric pain along with pinching and tightness along the LUQ which radiates to his back. Also has dull LLQ pain. Happens typically post prandially within 1 hour. Gets better as he adjusts his position. Trialed Omeprazole 10 earlier this year but not on empty stomach. Assoc with loose BMs which float . Stools are brown but sometimes sees blood on wiping. Defecation is not painful. Diet is mostly low in fiber. 04/30/25: Here for telehealth visit. Reports persistent pain under L rib. Mostly at night. Stabbing type pain which lasts a few seconds. Assoc with pain in L back. No nausea or vomiting. Appetite is ok. Also notices streaking of red blood in brown stool. Defecation is typically painful. Sits on the toilet for long time due to tenesmus and feeling of incomplete evacuation. Also strains to try to fully evacuate. 06/26/25: EGD/flex si. Normal esophagus (biopsy) 2. Esophageal nodule (biopsy) 3. Hiatal hernia 4. Gastritis (biopsy) 5. Normal duodenum (biopsy) 6. Normal colon mucosa 7. Internal hemorrhoids Path: A. Duodenum, biopsy: Duodenal mucosa within normal limits. B. Stomach, random, biopsy: Antral-type and oxyntic mucosa with mild chronic inactive inflammation; no Helicobacter organisms seen. C. Esophagus, lower, biopsy: Active esophagitis (maximum eosinophil count over 50 per high powered field). D. Esophagus, middle, biopsy: Squamous epithelium within normal limits; no inflammation seen. E. Esophagus, nodule at 35 cm: Small fragments of squamous epithelium within normal limits; no mass-forming lesion identified; multiple additional levels examined. See comment. Comment: The tissue in part E is small; consider repeat if there is concern for an unsampled lesion. 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 Depression NU (generalized anxiety disorder) Daily consumption of alcohol Seasonal affective disorder Seasonal asthma OCD (obsessive compulsive disorder) Epigastric discomfort Abdominal pain Surgical History (Updated 07/09/25 @ 09:14 by GOLDEN Lockwood) Hx of colonoscopy History of esophagogastroduodenoscopy (EGD) Family History Maternal Grandfather Lung cancer Social History Patient Tobacco Use Status: Never used Tobacco Review of Systems Const All systems reviewed & are unremarkable except as noted in HPI and below Physical Exam Exam Exam: Video visit: No acute distress No icterus noted No facial asymmetry Speaking in full sentences Telehealth Telehealth Telehealth Platform: Cellay Location of provider rendering services: practice address Location of patient: address on file Patient Identification confirmed using: Name, : Yes Telehealth method: video Patient verbally consented to treatment: Yes Patient verbally consented to billing insurance company: Yes Patient informed of any privacy concerns related to visit: Yes Minutes spent on Phone/Video with Pt.: 8 Assessment & Plan Assessment & Plan (1) Rib pain on left side: Code(s): R07.81 - Pleurodynia Category: Medical (2) Abdominal pain: Code(s): R10.9 - Unspecified abdominal pain Category: Medical (3) Diarrhea: Code(s): R19.7 - Diarrhea, unspecified (4) Gastritis: Code(s): K29.70 - Gastritis, unspecified, without bleeding Category: Medical Plan Discussed with the patient that based on EGD and flex sig findings, no intraluminal etiology identified to explain his sharp left-sided pain that radiates to his left shoulder. He does have gastritis, and microscopic evidence of reflux. Has just started famotidine. Hiatal hernia is small, and does not need any further evaluation at this time. In terms of bowel habits, patient previously reported significant straining and incomplete evacuation, but today, again reports liquid stool and diarrhea. Concerned about pancreatic insufficiency. Reviewed that no duodenitis, celiac or endoscopic evidence of colitis noted on procedure done last week. Stool studies ordered. A follow-up will be set up if actionable results otherwise results will be communicated over the portal. Orders: Orders Fecal Fat Qualitative Today R19.7 - Diarrhea, unspecified Pancreatic Elastase-1 Today R19.7 - Diarrhea, unspecified Calprotectin, Fecal Today R19.7 - Diarrhea, unspecified Coding Level of Care Code Tele Est Pt Level 4 (49273) Diagnoses Rib pain on left side R07.81 Abdominal pain R10.9 Diarrhea R19.7 Gastritis K29.70
--- OUTSIDE RECORDS SUMMARY | 2025-07-09 10:14 | XMS_ITS | Encounter Summary ---
Author Organization [facility] Address [address] [place] [address] Phone Care Team Providers Care Artificial Foliage Arranger Name Role Phone Jose M Hatch MD Primary Care Provider [phone] Encounter Details Date Type Department Care Team (Late st Contact Info) Description 11/21/2011 Documentation [facility] [place] [address] [place] [address] Family Medicine, Physician [address] [place], [place] [address] Social History Tobacco Use Types Packs/Day Years [...] on filedocumented in this encounter Care Teams Artificial Foliage Arranger Relationship Specialty Start Date End Date Jose M Hatch MD [address] [place] [address] [place] [address] PCP - General 05/05/17 11/10/22 documented as of this encounter
--- OUTSIDE RECORDS SUMMARY | 2025-07-09 10:14 | XMS_ITS | Encounter Summary ---
Author Organization [facility] Address [address] [place] [address] Phone Care Team Providers Care Behavioral Psychologist Name Role Phone Jose M Hatch MD Primary Care Provider [phone] Encounter Details Date Type Department Care Team (Late st Contact Info) Description 08/17/2010 Documentation [facility] [address] [place] [address] Family Medicine, Physician [address] [place], [place] [id number] Social History Tobacco Use Types Packs/Day Years [...] on filedocumented in this encounter Care Teams Behavioral Psychologist Relationship Specialty Start Date End Date Jose M Hatch MD [address] [place] [address] [place] [address] PCP - General 05/05/17 11/10/22 documented as of this encounter
--- OUTSIDE RECORDS SUMMARY | 2025-07-09 10:14 | XMS_ITS | Encounter Summary ---
Author Organization [facility] Address [address] [place], [place] [id number] Phone Care Team Providers Care Journeyman Mechanic Name Role Phone Jose M Hatch MD Primary Care Provider [phone] Encounter Details Date Type Department Care Team (Late st Contact Info) Description 05/11/2017 Conversion Encounter [facility] [place] [address] [place] [address] Social History Tobacco Use Types Packs/Day Years [...] on filedocumented in this encounter Care Teams Journeyman Mechanic Relationship Specialty Start Date End Date Jose M Hatch MD [address] [place] [address] PCP - General 05/05/17 11/10/22 documented as of this encounter
--- OUTSIDE RECORDS SUMMARY | 2025-07-09 10:14 | XMS_ITS | Encounter Summary ---
Author Organization [facility] Address [address] [place] [address] Phone Care Team Providers Care Gold Frame Assembler Name Role Phone Jose M Hatch MD Primary Care Provider [phone] Encounter Details Date Type Department Care Team (Late st Contact Info) Description 05/06/2015 Documentation [facility] [place] Family Medicine [address] [place] [address] Family Medicine, Physician [address] [place], [place] [address] Social History Tobacco Use Types Packs/Day Years [...] on filedocumented in this encounter Care Teams Gold Frame Assembler Relationship Specialty Start Date End Date Jose M Hatch MD [address] [place] [address] [place] [address] PCP - General 05/05/17 11/10/22 documented as of this encounter
--- OUTSIDE RECORDS SUMMARY | 2025-07-09 10:14 | XMS_ITS | Clinical Summary ---
Author Organization [facility] Address [address] [place] [address] Phone Care Team Providers Care Nailing Machine Operator Name Role Phone Unavailable Primary Care Provider [...] of Obesity, No family history of Sudden /[place] under age 55, No family history of [...] 59 08/01/2017 11:11 AM EST Temperature 37 C (98.6 F) 08/01/2017 11:11 AM EST Respiratory Rate - - Oxygen Saturation 98% 04/01/2014 12:00 AM EDT Inhaled Oxygen Concentration - - Weight 86.9 kg (191 lb 9.6 oz) 08/01/2017 11:11 AM EST Height 194.3 cm (6' 4.5 ) 08/01/2017 11:11 AM ES T Body Mass Index 23.02 08/01/2017 11:11 AM EST Plan of Treatment Health Maintenance Due Date Last Done Comments DTaP,Tdap,and Td Vaccines (7 - Td or Tdap) 08/13/2020 08/13/2010, 06/26/2002, 12/15/1999, Additional history exists Influenza Vaccines (#1) 2025 07/20/20 15, 07/18/2014, 08/24/2011, Additional history exists COVID-19 Vaccine ( season) 2025 HPV Vaccines (1 - 3-dose SCDM series) 2025 Hepatitis B Vaccines Completed 1998, 1998, 1998 [...] patient's age to complete this topic Insurance [facility] PPO
--- OUTSIDE RECORDS SUMMARY | 2025-07-09 10:14 | XMS_ITS | Clinical Summary ---
Author Organization [facility] Address [address] [place] [address] Phone Care Team Providers Care Radio Communications Mechanician Name Role Phone Pcp, Unknown Primary Care [...] SMOKING Hx and SMOKELESS TOBACCO SCREENING 2011 HEPATITIS C SCREENING 2016 HIV ONE-TIME SCREENING (18-65 YEARS) 2016 INFLUENZA VACCINE (#1) 2025 , 07/20/2015, 07/18/2014, Additional history exists COVID-19 VACCINE ( season) 2025 08/16/2021, 12/01/2020, 11/09/2020 Adult Td,Tdap Booster 01/17/2033 [...] topic Medical Devices Not on file Insurance [facility] PPO Care Teams Radio Communications Mechanician Relationship Specialty Start Date End Date Pcp, Unknown PCP - General 01/17/23 Additional Source Comments The information contained in this document represents components of the legal health record. It is not the complete legal health record.[facility]
--- OUTSIDE RECORDS SUMMARY | 2025-07-09 10:14 | XMS_ITS | Encounter Summary ---
Author Organization [facility] Address [address] [place] [address] Phone Care Team Providers Care Manager Plant Name Role Phone Jose M Hatch MD Primary Care Provider [phone] Encounter Details Date Type Department Care Team (Late st Contact Info) Description 08/17/2010 Documentation [facility] [address] [place] [address] Family Medicine, Physician [address] [place], [place] [address] Social History Tobacco Use Types Packs/Day Years [...] filedocumented in this encounter Care Teams Manager Plant Relationship Specialty Start Date End Date Jose M Hatch MD [address] [place] [address] [place] [address] PCP - General 05/05/17 11/10/22 documented as of this encounter
== END 2025-07-09 11:50 | disposition home or self-care (01) ==
LOC: HO.HGI 09:13
PROVIDERS: PCP Internal Medicine; Visit Provider Internal Medicine
DX: R07.81 Pleurodynia (principal); R10.9 Unspecified abdominal pain; R19.7 Diarrhea, unspecified; K29.70 Gastritis, unspecified, without bleeding
CPT/HCPCS: 99214

== ENCOUNTER 2025-07-14 16:30 | Outpatient (REF) | payer BC, SELFPAY ==
--- OUTSIDE RECORDS SUMMARY | 2025-07-14 20:41 | XMS_ITS | Encounter Summary ---
Author Organization [facility] Address [address] [place] [address] Phone Care Team Providers Care Mushroom Cutter Name Role Phone Jose M Hatch MD Primary Care Provider [phone] Encounter Details Date Type Department Care Team (Late st Contact Info) Description 08/17/2010 Documentation [facility] [address] [place] [address] Family Medicine, Physician [address] [place], [place] [address] Social History Tobacco Use Types Packs/Day Years [...] on filedocumented in this encounter Care Teams Mushroom Cutter Relationship Specialty Start Date End Date Jose M Hatch MD [address] [place] [address] [place] [address] PCP - General 05/05/17 11/10/22 documented as of this encounter
--- OUTSIDE RECORDS SUMMARY | 2025-07-14 20:41 | XMS_ITS | Encounter Summary ---
Author Organization [facility] Address [address] [place] [address] Phone Care Team Providers Care Fuel Retrofitting Technician Name Role Phone Jose M Hatch MD Primary Care Provider [phone] Encounter Details Date Type Department Care Team (Late st Contact Info) Description 05/06/2015 Documentation [facility] [place] Family Medicine [address] [place] [address] Family Medicine, Physician [address] [place], [place] [address] Social History Tobacco Use Types Packs/Day Years [...] on filedocumented in this encounter Care Teams Fuel Retrofitting Technician Relationship Specialty Start Date End Date Jose M Hatch MD [address] [place] [address] [place] [address] PCP - General 05/05/17 11/10/22 documented as of this encounter
--- OUTSIDE RECORDS SUMMARY | 2025-07-14 20:41 | XMS_ITS | Encounter Summary ---
Author Organization [facility] Address [address] [place] [address] Phone Care Team Providers Care Pigskin Trimmer Name Role Phone Jose M Hatch MD Primary Care Provider [phone] Encounter Details Date Type Department Care Team (Late st Contact Info) Description 08/17/2010 Documentation [facility] [address] [place] [address] Family Medicine, Physician [address] [place], [place] [address] Social History Tobacco Use Types Packs/Day Years [...] on filedocumented in this encounter Care Teams Pigskin Trimmer Relationship Specialty Start Date End Date Jose M Hatch MD [address] [place] [address] [place] [address] PCP - General 05/05/17 11/10/22 documented as of this encounter
--- OUTSIDE RECORDS SUMMARY | 2025-07-14 20:41 | XMS_ITS | Encounter Summary ---
Author Organization [facility] Address [address] [place] [phone] Phone Care Team Providers Care Education And Outreach Coordinator Name Role Phone Jose M Hatch MD Primary Care Provider [phone] Encounter Details Date Type Department Care Team (Late st Contact Info) Description 11/21/2011 Documentation [facility] [place] [address] [place] [address] Family Medicine, Physician [address] [place], [place] [address] Social History Tobacco Use Types Packs/Day Years [...] on filedocumented in this encounter Care Teams Education And Outreach Coordinator Relationship Specialty Start Date End Date Jose M Hatch MD [address] [place] [address] [place] [address] PCP - General 05/05/17 11/10/22 documented as of this encounter
--- OUTSIDE RECORDS SUMMARY | 2025-07-14 20:41 | XMS_ITS | Encounter Summary ---
Author Organization [facility] Address [address] [place], [place] [phone] Phone Care Team Providers Care Sports Announcer Name Role Phone Jose M Hatch MD Primary Care Provider [phone] Encounter Details Date Type Department Care Team (Late st Contact Info) Description 05/11/2017 Conversion Encounter [facility] [address] [place] [address] Social History Tobacco Use Types Packs/Day Years [...] on filedocumented in this encounter Care Teams Sports Announcer Relationship Specialty Start Date End Date Jose M Hatch MD [address] [place] [address] PCP - General 05/05/17 11/10/22 documented as of this encounter
--- OUTSIDE RECORDS SUMMARY | 2025-07-14 20:41 | XMS_ITS | Clinical Summary ---
Author Organization [facility] Address [address] [place] [address] Phone Care Team Providers Care Hospitality Manager Name Role Phone Unavailable Primary Care Provider [...] of Obesity, No family history of Sudden /[place] under age 55, No family history of [...] patient's age to complete this topic Insurance [facility] PPO
--- OUTSIDE RECORDS SUMMARY | 2025-07-14 20:41 | XMS_ITS | Clinical Summary ---
Author Organization [facility] Address [address] [place] [address] Phone Care Team Providers Care Pawn Broker Name Role Phone Pcp, Unknown Primary Care [...] topic Medical Devices Not on file Insurance [facility] PPO Care Teams Pawn Broker Relationship Specialty Start Date End Date Pcp, Unknown PCP - General 01/17/23 Additional Source Comments The information contained in this document represents components of the legal health record. It is not the complete legal health record.[facility]
[2025-07-24 03:49] LABS: Calprotectin, Fecal 13 mcg/g
== END 2025-07-14 16:31 | disposition home or self-care (01) ==
LOC: HO.LNP 16:30
PROVIDERS: Visit Provider Internal Medicine
DX: R19.7 Diarrhea, unspecified (principal)
CPT/HCPCS: 82656; 82705; 83993